=== PATIENT | male | born 1940 | race Two or more races ===

== ENCOUNTER 2020-01-12 08:53 | Outpatient (REF) | payer MEDICARE, SELFPAY ==
--- NOTE | 2020-01-12 09:02 | XR_ITS ---
EXAMINATION: XR CHEST CLINICAL INFORMATION: Cough COMPARISON: None TECHNIQUE: 2 views of the chest were obtained. FINDINGS: There is question of subpleural groundglass opacity periphery right mid zone on frontal view. There is no lobar or segmental airspace consolidation. The costophrenic sulci are clear. The heart is normal in size. The hilar and mediastinal contours are unremarkable. No acute bony abnormality. XR/XR chest 2V IMPRESSION: 1. Suspect subtle subpleural groundglass opacity periphery right mid zone which could be associated with early atypical or viral pneumonia. 2. Lungs otherwise clear. No lobar or segmental airspace consolidation or effusion.
[2020-01-12 11:24] LABS: MANUAL DIFF FLAG NO
[2020-01-12 11:33] LABS: Estimated Average Glucose 160 mg/dL; Hemoglobin A1c % 7.2 %
[2020-01-12 11:34] LABS: Basophils Percent Auto 0.2 % (0-2); Eosinophils Absolute Auto 0.1 X10*3/uL (0.0-0.4); Eosinophils Percent Auto 0.9 % (0-4); Hematocrit 35.8 % (42-52); Hemoglobin 11.5 g/dl (14.0-18.0); Imm Gran Abs Auto 0.01 X10*3/uL (0.00-0.03); Imm Gran Pct Auto 0.2 % (0.0-0.4); Lymphocytes Absolute Auto 1.4 X10*3/uL (1.2-4.9); Lymphocytes Percent Auto 26.2 % (20-40); Mean Corpuscular HGB Conc 32.1 g/dl (31.0-36.0); Mean Corpuscular Hemoglobin 29.9 pg (27.0-33.0); Mean Platelet Volume 10.4 fL (9.4-12.4); Monocytes Absolute Auto 0.4 X10*3/uL (0.1-1.2); Monocytes Percent Auto 7.7 % (2-11); Neutrophils Absolute Auto 3.5 X10*3/uL (2.0-8.3); Neutrophils Percent Auto 64.8 % (45-73); Platelet Count 243 X10*3/uL (160-400); Red Blood Count 3.85 X10*6/uL (4.60-5.80); Red Cell Distribution Width 13.6 % (11.0-16.0); White Blood Count 5.4 X10*3/uL (4.8-10.8)
[2020-01-12 11:43] LABS: Creatinine Urine 97.37 mg/dL; Microalbumin Urine < 5.0 mg/L
[2020-01-12 12:39] LABS: Alanine Aminotransferase 18 U/L (0-40); Alkaline Phosphatase 60 U/L (39-117); Anion Gap 15 (12-20); Aspartate Amino Transferase 17 U/L (5-37); Bilirubin Total 0.5 mg/dL (0.0-1.0); Blood Urea Nitrogen 20 mg/dL (9-16); Calcium 8.7 mg/dL (8.4-10.2); Carbon Dioxide 26 mmol/L (22-29); Chloride 103 mmol/L (96-108); Cholesterol 208 mg/dL; Estimated Glomerular Filt Rate 57; Glucose Fasting 137 mg/dL (60-99); HDL Cholesterol 39 mg/dL; Iron 92 mcg/dL (45-160); LDL Cholesterol Calculated 131 mg/dl; Percent Iron Saturation 32 % (15-50); Potassium 4.5 mmol/l (3.3-5.1); Sodium 139 mmol/L (135-145); Total Iron Binding Capacity 287 mcg/dL (228-428); Total Protein 6.9 g/dL (6.5-8.0); Triglycerides 194 mg/dL; Unsaturated Iron Binding 195 ug/dL
== END 2020-01-12 08:54 | disposition home or self-care (01) ==
LOC: HO.HMGCLDS 08:53
PROVIDERS: PCP Internal Medicine; Visit Provider Internal Medicine
DX: E11.9 Type 2 diabetes mellitus without complications (principal); J44.9 Chronic obstructive pulmonary disease, unspecified; I48.91 Unspecified atrial fibrillation; I10 Essential (primary) hypertension; E78.5 Hyperlipidemia, unspecified; R05 Cough
CPT/HCPCS: 36415; 71046; 80053; 80061; 82043; 83036; 83540; 84443; 85025

== ENCOUNTER 2020-02-16 14:55 | Outpatient (REF) | payer MEDICARE, SELFPAY ==
--- NOTE | 2020-02-16 15:10 | XR_ITS ---
EXAMINATION: XR CHEST CLINICAL INFORMATION: Cough. COMPARISON: None TECHNIQUE: 2 views of the chest were obtained. FINDINGS: No significant abnormality is noted involving the heart, lungs, mediastinum, bony thorax or soft tissues. XR/XR chest 2V IMPRESSION: Unremarkable chest exam.
== END 2020-02-16 14:56 | disposition home or self-care (01) ==
LOC: HO.HMGCX 14:55
PROVIDERS: PCP Internal Medicine; Visit Provider Internal Medicine
DX: R05 Cough (principal)
CPT/HCPCS: 71046

== ENCOUNTER → 2020-02-29 09:34 | Outpatient (BNVA) | payer MEDICARE, SELFPAY | PROVIDERS: PCP Internal Medicine; Visit Provider Internal Medicine Cardiovascular Disease | DX: I48.0 Paroxysmal atrial fibrillation (principal); I11.9 Hypertensive heart disease without heart failure; Z79.01 Long term (current) use of anticoagulants; Z79.899 Other long term (current) drug therapy | CPT/HCPCS: 93005; 99212 ==

== ENCOUNTER 2020-03-08 10:33 | Outpatient (REF) | payer MEDICARE, SELFPAY ==
--- NOTE | 2020-03-08 10:38 | XR_ITS ---
EXAMINATION: XR CHEST CLINICAL INFORMATION: Cough. COMPARISON: None TECHNIQUE: 2 views of the chest were obtained. FINDINGS: The lungs are hyperinflated but clear. The heart size and pulmonary vascularity is normal. No gross bony abnormality seen. XR/XR chest 2V IMPRESSION: Hyperinflated lungs without acute process.
== END 2020-03-08 10:34 | disposition home or self-care (01) ==
LOC: HO.HMGCX 10:33
PROVIDERS: PCP Internal Medicine; Visit Provider Internal Medicine
DX: R05 Cough (principal); J44.9 Chronic obstructive pulmonary disease, unspecified
CPT/HCPCS: 71046

== ENCOUNTER 2020-05-12 08:37 | Outpatient (REF) | payer MEDICARE, SELFPAY ==
[2020-05-12 11:29] LABS: MANUAL DIFF FLAG NO
[2020-05-12 11:38] LABS: Basophils Percent Auto 0.3 % (0-2); Eosinophils Absolute Auto 0.1 X10*3/uL (0.0-0.4); Eosinophils Percent Auto 1.1 % (0-4); Hematocrit 38.8 % (42-52); Hemoglobin 12.5 g/dl (14.0-18.0); Imm Gran Abs Auto 0.01 X10*3/uL (0.00-0.03); Imm Gran Pct Auto 0.2 % (0.0-0.4); Lymphocytes Absolute Auto 2.3 X10*3/uL (1.2-4.9); Lymphocytes Percent Auto 37.9 % (20-40); Mean Corpuscular HGB Conc 32.2 g/dl (31.0-36.0); Mean Corpuscular Hemoglobin 29.9 pg (27.0-33.0); Mean Corpuscular Volume 92.8 fL (80-98); Mean Platelet Volume 10.2 fL (9.4-12.4); Monocytes Absolute Auto 0.5 X10*3/uL (0.1-1.2); Monocytes Percent Auto 8.5 % (2-11); Neutrophils Absolute Auto 3.2 X10*3/uL (2.0-8.3); Platelet Count 257 X10*3/uL (160-400); Red Blood Count 4.18 X10*6/uL (4.60-5.80); Red Cell Distribution Width 12.8 % (11.0-16.0); White Blood Count 6.1 X10*3/uL (4.8-10.8)
[2020-05-12 12:08] LABS: Alanine Aminotransferase 19 U/L (0-40); Albumin Level 4.2 g/dL (3.5-5.0); Alkaline Phosphatase 58 U/L (39-117); Anion Gap 11 (12-20); Aspartate Amino Transferase 18 U/L (5-37); Bilirubin Total 0.5 mg/dL (0.0-1.0); Blood Urea Nitrogen 27 mg/dL (9-16); Calcium 8.9 mg/dL (8.4-10.2); Carbon Dioxide 29 mmol/L (22-29); Chloride 103 mmol/L (96-108); Cholesterol 215 mg/dL; Estimated Glomerular Filt Rate 56; Glucose Fasting 99 mg/dL (60-99); HDL Cholesterol 39 mg/dL; LDL Cholesterol Calculated 123 mg/dl; Potassium 4.2 mmol/L (3.3-5.1); Sodium 139 mmol/L (135-145); Total Protein 7.1 g/dL (6.5-8.0); Triglycerides 268 mg/dL
[2020-05-12 12:12] LABS: Estimated Average Glucose 148 mg/dL; Hemoglobin A1c % 6.8 %
[2020-05-12 12:27] LABS: Creatinine Urine 94.11 mg/dL; Microalbumin Urine < 5.0 mg/L
== END 2020-05-12 08:38 | disposition home or self-care (01) ==
LOC: HO.HMGCLDS 08:37
PROVIDERS: PCP Internal Medicine; Visit Provider Internal Medicine
DX: J44.9 Chronic obstructive pulmonary disease, unspecified (principal); I48.91 Unspecified atrial fibrillation; E11.9 Type 2 diabetes mellitus without complications
CPT/HCPCS: 36415; 80053; 80061; 82043; 83036; 85025

== ENCOUNTER → 2020-06-09 14:07 | Outpatient (REF) | payer MEDICARE, SELFPAY ==
--- NOTE | 2020-06-09 14:12 | CA_ITS ---
Transthoracic Echocardiogram Patient (Last, First, Middle): Isaak Stephenson, Gender: Male Date of : 1940 Age: 79 Procedure Date: 06/09/2020 Procedure Type: Transthoracic Echocardiogram Location: OP Height: 170.18 cm Weight: 94.35 kg BSA: 2.06 m2 Heart Rate: bpm BP: 132 / 70 mmHg Retail Account Specialist: REYNALDO Referring MD: Ruddy Solomon MD Symptoms: I51.89 - Other ill-defined heart diseases Study Quality: Good ECG Rhythm: Atrial Fibrillation Conclusions: - The left ventricular systolic function is normal. The visually estimated ejection fraction is between 55-60%. - The left atrium is mildly dilated. - No obvious valvular pathology seen on this study. Findings Left Ventricle Normal left ventricular cavity size. There is mildly increased left ventricular wall thickness. The left ventricular systolic function is normal. The visually estimated ejection fraction is between 55-60%. There is no evidence of regional wall motion abnormalities. Diastolic function is indeterminate on the basis of available data. Right Ventricle Normal right ventricular cavity size and systolic function. Atria The left atrium is mildly dilated. The right atrium is normal in size. Aortic Valve There is a normal trileaflet aortic valve. There is no aortic valve stenosis. There is no aortic valve regurgitation. Mitral Valve The mitral valve appears normal. There is trace mitral valve regurgitation. There is no mitral valve stenosis. Pulmonic Valve The pulmonic valve was not well visualized. Tricuspid Valve Normal tricuspid valve structure. There is trace tricuspid valve regurgitation. The pulmonary artery systolic pressure is normal. Great Vessels The aortic annulus, sinuses of valsalva, and asc aorta are normal in size. Venous The inferior vena cava is normal in size and collapses greater than 50% with inspiration. Pericardium/Pleural There is no evidence of pericardial effusion. Prior Study Comparison No significant change compared to prior study dated: 06/19/2018. Recommendations, Care & Conclusions No obvious valvular pathology seen on this study. Measurements 2D Linear Measurements IVSd: 1.22 0.6-0.9/0.6-1.0 cm LVIDd: 4.88 3.9-5.3/4.2-5.9 cm LVIDd Index: 2.37 2.4-3.2/2.2-3.1 cm/m2 LVIDs: 3.29 2.0-3.6 cm LVPWd: 1.19 0.7-1.1 cm Ao Root: 4.00 2.1-3.5 cm LA Diam: 4.00 2.7-3.8/3.0-4.0 cm LAIDs Index: 1.94 1.5-2.3 cm/m2 LV Mass: 282.05 67-162/88-224 g LV Mass Index: 136.92 43-95/49-115 g/m2 LVOT Diam: 2.20 3.0+(-)1.3 cm 2D Systolic Function EF 4C: 58.30 >55% EF 2C: 63.50 >55% EF BiP: 60.20 >55% Aortic Valve AoV Pk Jaime: 1.32 AoV Mn Jaime: 0.94 AoV VTI: 0.25 AoV Pk Grad: 7.00 Aov Mn Grad: 4.00 ANDREA Cont.VTI: 2.53 LVOT LVOT Pk Jaime: 0.76 LVOT Mn Jaime: 0.55 LVOT VTI: 0.16 LVOT Pk Grad: 2.00 LVOT Mn Grad: 1.00 LVOT Diam: 2.20 LVOT Area: 3.80 Tricuspid Valve TR Pk Jaime: 2.47 TR Pk Grad: 24.00 RA Press: 3.00 RVSP: 27.00 Great Vessels Aorta Ao Root-2D: 4.00 2.0-3.7 cm Ao Asc: 3.70 2.1-3.4 cm Ao Arch: 3.30 Updated in Other Vendor System with Status of Final Rolf Alfredo MD electronically signed on 06/11/2020 11:45:34 AM with status of Final
== END ==
LOC: HO.CARD 14:07
PROVIDERS: Visit Provider Internal Medicine Cardiovascular Disease
DX: I48.0 Paroxysmal atrial fibrillation (principal); I51.89 Other ill-defined heart diseases
CPT/HCPCS: 93306

== ENCOUNTER → 2020-06-14 11:49 | Outpatient (BNVA) | payer MEDICARE, SELFPAY | PROVIDERS: PCP Internal Medicine; Visit Provider Nurse Practitioner Family | DX: I48.0 Paroxysmal atrial fibrillation (principal); I11.9 Hypertensive heart disease without heart failure; Z79.899 Other long term (current) drug therapy | CPT/HCPCS: 93005; 99212 ==

== ENCOUNTER → 2020-06-16 09:37 | Outpatient (REF) | payer MEDICARE, SELFPAY ==
--- NOTE | 2020-06-16 13:20 | ECG_ITS ---
Hook-up date: 2020-06-16 10:01:00 Duration: 24:57:00 Test Indications: PAF Medications: [id number] QRS complexes 69 Ventricular ectopics which represent <1 % of total QRS comp. * Supraventricular ectopics which represent % of total QRS comp. * Paced QRS complexs which represent % of total QRS comp. VENTRICULAR ECTOPY 69 Isolated 0 Bigeminal Cycles 0 Couplets 0 Runs 0 Beats in Runs * Beats LONGEST at * BPM at :: -- * Beats FASTEST at * BPM at :: -- SUPRAVENTRICULAR ECTOPY * Isolated * Couplets * Runs * Beats in Runs * Beats LONGEST at * BPM at :: -- * Beats FASTEST at * BPM at :: -- HEART RATES 46 MIN at 01:37:14 2020-06-17 74 AVG 148 MAX at 10:04:45 2020-06-16 LONGEST RR 2.4080 secs at 01:51:44 2020-06-17 S-T LEVELS Channel 1 - 128 mm at 10:01:00 2020-06-16 - 128 mm at 10:01:00 2020-06-16 Channel 2 - 128 mm at 10:01:00 2020-06-16 - 128 mm at 10:01:00 2020-06-16 Channel 3 - 128 mm at 02:92:01 -- - 128 mm at 02:92:01 Underlying rhythm is atrial fibrillation; Average rate 74/min; range 46-148/min; Most rates are between 60-100/min; Very rare PVCs; Patient diary not available for review. Referred By: Rhina Pedro Overread By: YESSI SCHUSTER
== END ==
LOC: HO.CARD 09:37
PROVIDERS: PCP Internal Medicine; Visit Provider Nurse Practitioner Family
DX: I48.0 Paroxysmal atrial fibrillation (principal)
CPT/HCPCS: 93226

== ENCOUNTER 2020-06-21 08:50 | Day surgery (SDC) | payer MEDICARE, SELFPAY ==
--- NOTE | 2020-06-16 13:52 | HO.ANESPROP2 ---
Documented by User: Micheline Pedrozaney 06/16/20 13:54 HPI - Anesthesia Eval Consult details Narrative: 79yo M for Colonoscopy Routine cardiology OV 06/13/20 - stable Pradaxa for Afib PMFSH Active Problems Active Problems: All Active Problems (Updated 02/29/20 @ 10:42 by Ruddy Solomon MD) Paroxysmal atrial fibrillation (Acute) Diastolic dysfunction (Acute) HTN (hypertension) (Acute) Diabetes (Acute) COPD (chronic obstructive pulmonary disease) (Acute) Cough (Acute) Past Medical History Medical History BPH (benign prostatic hyperplasia) Chronic iron deficiency anemia COPD (chronic obstructive pulmonary disease) Cough Diabetes Diastolic dysfunction HTN (hypertension) Hyperlipidemia Paroxysmal atrial fibrillation Surgical History Surgical History H/O colonoscopy History of esophagogastroduodenoscopy (EGD) S/P cholecystectomy Social History Social History Alcohol intake: never Smoking Status: Never smoker Use of substances other than those prescribed or required for medical reasons: No Have you been hit, kicked, punched, or otherwise hurt by someone within the past year? If so, by whom?: No Advance Directives: No Advance Directives Information Provided: Yes Recently lost weight without trying: No Meds Allergies Allergy/AdvReac Type Severity Reaction Status Date / Time No Known Allergies Allergy Verified 06/21/20 09:19 [No Known Allergies*] Home Medications Medication Instructions Recorded Confirmed Last Taken Type mecobalamin (vitamin B12) 1,000 1,000 mcg SUBLINGUAL DAILY 01/12/20 06/14/20 Unknown History mcg disintegrating tablet,sublingual multivit-mins no.11-folic acid PO 01/12/20 06/14/20 Unknown History pen needle, diabetic 31 gauge x #1200 ea 01/12/20 06/14/20 Unknown History 07/17 flu vacc [id number](65yr up)PF 180 0.5 ml IM DIRECTED 02/16/20 06/14/20 Unknown History mcg/0.5 mL intramuscular syringe pen needle, diabetic 32 gauge x #50 ea 02/16/20 06/14/20 Unknown History umeclidinium 62.5 mcg-vilanterol 1 ea INHALATION DAILY 02/16/20 06/14/20 Unknown History 25 mcg/actuation powdr for inhalation Exam Exam Date and Time: June 16, 2020 1352 Pertinent Lab Results Pertinent Lab Results: Laboratory Tests 05/12/20 05/12/20 08:45 08:45 WBC 6.1 Hgb 12.5 L Hct 38.8 L Plt Count 257 Sodium 139 Potassium 4.2 Chloride 103 Carbon Dioxide 29 BUN 27 H Creatinine 1.25 Narrative Narrative: EKG 06/2020 Atrial fibrillation, rate 67 ECHO 2020 Conclusions: - The left ventricular systolic function is normal. The visually estimated ejection fraction is between 55-60%. - The left atrium is mildly dilated. - No obvious valvular pathology seen on this study. Assessment and Plan Assessment Anesthesia Assessment: Chart Reviewed Documented by User: Skylar Sarkar 06/21/20 09:21 PMFSH Past Medical History Medical History BPH (benign prostatic hyperplasia) Chronic iron deficiency anemia COPD (chronic obstructive pulmonary disease) Cough Diabetes Diastolic dysfunction HTN (hypertension) Hyperlipidemia Paroxysmal atrial fibrillation Surgical History Surgical History H/O colonoscopy History of esophagogastroduodenoscopy (EGD) S/P cholecystectomy Social History Social History Alcohol intake: never Smoking Status: Never smoker Use of substances other than those prescribed or required for medical reasons: No Have you been hit, kicked, punched, or otherwise hurt by someone within the past year? If so, by whom?: No Advance Directives: No Advance Directives Information Provided: Yes Recently lost weight without trying: No Meds Allergies Allergy/AdvReac Type Severity Reaction Status Date / Time No Known Allergies Allergy Verified 06/21/20 09:19 [No Known Allergies*] Home Medications Medication Instructions Recorded Confirmed Last Taken Type mecobalamin (vitamin B12) 1,000 1,000 mcg SUBLINGUAL DAILY 01/12/20 06/14/20 Unknown History mcg disintegrating tablet,sublingual multivit-mins no.11-folic acid PO 01/12/20 06/14/20 Unknown History pen needle, diabetic 31 gauge x #1200 ea 01/12/20 06/14/20 Unknown History 516 flu vacc [id number](65yr up)PF 180 0.5 ml IM DIRECTED 02/16/20 06/14/20 Unknown History mcg/0.5 mL intramuscular syringe pen needle, diabetic 32 gauge x #50 ea 02/16/20 06/14/20 Unknown History umeclidinium 62.5 mcg-vilanterol 1 ea INHALATION DAILY 02/16/20 06/14/20 Unknown History 25 mcg/actuation powdr for inhalation Exam Airway Mallampati Class: II TM Dist: >3cm Neck ROM: Full Assessment and Plan Assessment Anesthesia Assessment: Anesthesia Plan Discussed and Chart Reviewed Final Anesthetic Review NPO: Yes ASA Class: III Final Preanesthetic Review: No Changes in Pt Med Stat, Meds/Allgs Chart Reviewed, Consent Obtained/Reviewed and Anes Risks/Benef Reviewed Patient Risk: Intermediate Procedure Risk: Low Assessment/Block/Sedation in SS: Assess/Block/Sedation-SS Anesthetic Plan Anesthetic Plan: MAC: Disposition: Standard PACU
[2020-06-21 09:18] VITALS: BP 160/94; PULSE 81; RESP 18; TEMP 36.2; O2SAT 96
[2020-06-21 09:20] LABS: Glucose, Whole Blood 133 mg/dL (60-115)
--- NOTE | 2020-06-21 09:21 | P.CONAN_ITS ---
[facility] Active Problems Active Problems: All Active Problems (Updated 06/16/20 @ 13:54 by Micheline casiano) Paroxysmal atrial fibrillation (Acute) Diastolic dysfunction (Acute) HTN (hypertension) (Acute) Diabetes (Acute) COPD (chronic obstructive pulmonary disease) (Acute) Cough (Acute) Past Medical History Medical History BPH (benign prostatic hyperplasia) Chronic iron deficiency anemia COPD (chronic obstructive pulmonary disease) Cough Diabetes Diastolic dysfunction HTN (hypertension) Hyperlipidemia Paroxysmal atrial fibrillation Surgical History Surgical History H/O colonoscopy History of esophagogastroduodenoscopy (EGD) S/P cholecystectomy Social History Social History Alcohol intake: never Smoking Status: Never smoker Use of substances other than those prescribed or required for medical reasons: No Have you been hit, kicked, punched, or otherwise hurt by someone within the past year? If so, by whom?: No Advance Directives: No Advance Directives Information Provided: Yes Recently lost weight without trying: No Meds Allergies Allergy/AdvReac Type Severity Reaction Status Date / Time No Known Allergies Allergy Verified 06/21/20 09:19 [No Known Allergies*] Active Medications: Current Medications Generic Name Dose Route Start Last Admin Trade Name Freq PRN Reason Stop Dose Admin Albuterol Sulfate 2.5 mg 06/21/20 08:30 Albuterol Sulfate (0.083%) 2.5 Mg/3 Ml Vial.Neb INHALE ONCE PRN Shortness of Breath/Wheezing Lactated Ringer's 1,000 mls @ 100 mls/hr 06/21/20 08:30 Lr IVCONT .Q10H [facility] Home Medications Medication Instructions Recorded Confirmed Last Taken Type mecobalamin (vitamin B12) 1,000 1,000 mcg SUBLINGUAL DAILY 01/12/20 06/14/20 Unknown History mcg disintegrating tablet,sublingual multivit-mins no.11-folic acid PO 01/12/20 06/14/20 Unknown History pen needle, diabetic 31 gauge x #1200 ea 01/12/20 06/14/20 Unknown History 07/17 flu vacc [id number](65yr up)PF 180 0.5 ml IM DIRECTED 02/16/20 06/14/20 Unknown History mcg/0.5 mL intramuscular syringe pen needle, diabetic 32 gauge x #50 ea 02/16/20 06/14/20 Unknown History umeclidinium 62.5 mcg-vilanterol 1 ea INHALATION DAILY 02/16/20 06/14/20 Unknown History 25 mcg/actuation powdr for inhalation Exam Exam Date and Time: June 21, 2020920 Height,Weight and Vital Signs: Height 203 ft Weight 2.438 kg Last Vital Signs Temp 97.1 F 06/21/20 09:18 Pulse 81 06/21/20 09:18 Resp 18 06/21/20 09:18 BP 160/94 H 06/21/20 09:18 Pulse Ox 96 06/21/20 09:18 Pertinent Lab Results Pertinent Lab Results: Laboratory Tests 06/21/20 09:15 POC Glucose 133 H
[2020-06-21] MEDS: Lactated Ringers 1,000 ML 100 ML IVCONT (09:33)
--- NOTE | 2020-06-21 09:44 | MHC.SHP ---
Pre-Procedural Eval Section A The patient is an INPATIENT: No Changes since office visit: No Cold of Flu in the past 2 weeks, No New Medical Problems, No Changes in Medication and No Patient answered all questions The History & Physical has been completed within 30 days and I have reviewed it.: Yes Section B Chief Complaint: screening Allergies: Allergies Allergy/AdvReac Type Severity Reaction Status Date / Time No Known Allergies Allergy Verified 06/21/20 09:19 [No Known Allergies*] Plan I have reviewed the history and physical and performed a pertinent physical examination on my patient. No changes have occurred unless specified.
[2020-06-21 10:20] VITALS: BP 124/63; PULSE 94; RESP 16; TEMP 36.2; O2SAT 97
--- NOTE | 2020-06-21 10:22 | PM.OP ---
Brief Operative Note Date of Service: 06/21/20 Pre-op diagnosis: screening Post-op diagnosis: same Procedure: colonoscopy Surgeon: Mckinley Rashid Estimated blood loss (mL): 5 Pathology: other (polyps cecum, r colon, 60cm, 45cm) Condition: stable Disposition: PACU
[2020-06-21 10:35] VITALS: BP 137/98; PULSE 95; RESP 17; TEMP 36.2; O2SAT 96
--- NOTE | 2020-06-21 10:47 | OP_ITS ---
SURGEON: Mckinley Rashid MD INDICATIONS: Colon cancer screening. PREOPERATIVE DIAGNOSIS: POSTOPERATIVE DIAGNOSIS: PROCEDURE PERFORMED: ESTIMATED BLOOD LOSS: COMPLICATIONS: ANESTHESIA: Medications, monitored anesthesia care. ASSISTANTS: SPECIMENS: PROCEDURES PERFORMED: Colonoscopy to the cecum with biopsy and snare polypectomy. DESCRIPTION OF PROCEDURE: History and physical performed. The risks and benefits of the procedure were explained to the patient. Informed consent was obtained. The patient was placed in the left lateral decubitus position. A digital rectal exam was performed and was found to be normal. The Olympus pediatric video colonoscope was introduced into the rectum and advanced to the cecum without difficulty. The cecum was identified by transillumination, palpation, and identification of ileocecal valve. Examination was performed, and the scope was removed. He tolerated the procedure well and was returned to the recovery area in stable condition. FINDINGS: The terminal ileum was not examined. The visualized colonic mucosa was within normal limits without evidence of masses or ulcers. Multiple polyps were identified, all measured less than 10 mm, removed with combination of snare and biopsy forceps. These were located in the cecum, right colon, 60 cm x3 and 45 cm. No other polyps were identified. There was some stool left limiting examination for detection of small polyps. This was washed and suctioned. There was moderate diverticulosis of the sigmoid. Retroflexed examination showed small internal hemorrhoids. IMPRESSION: Colon polyps. RECOMMENDATION: Follow up the biopsy results. MD MICHAEL Steele/JAS / [id number] MTDD
== END 2020-06-21 10:54 | disposition home or self-care (01) ==
PROVIDERS: PCP Internal Medicine; Visit Provider Internal Medicine Gastroenterology
PROC: 0DJD8ZZ Inspection of Lower Intestinal Tract, Via Natural or Artificial Opening Endoscopic (ICD-10-PCS; CPT 45378; principal; 2020-06-21 10:00)
DX: Z12.11 Encounter for screening for malignant neoplasm of colon (principal); Z86.010 Personal history of colon polyps; D12.0 Benign neoplasm of cecum; D12.2 Benign neoplasm of ascending colon; D12.4 Benign neoplasm of descending colon; K63.5 Polyp of colon; K57.30 Diverticulosis of large intestine without perforation or abscess without bleeding; K64.8 Other hemorrhoids; I10 Essential (primary) hypertension; J44.9 Chronic obstructive pulmonary disease, unspecified; J45.20 Mild intermittent asthma, uncomplicated; G62.9 Polyneuropathy, unspecified; I48.0 Paroxysmal atrial fibrillation; E11.9 Type 2 diabetes mellitus without complications; Z79.4 Long term (current) use of insulin; Z79.01 Long term (current) use of anticoagulants; Z79.51 Long term (current) use of inhaled steroids; Z79.899 Other long term (current) drug therapy; Z90.49 Acquired absence of other specified parts of digestive tract
CPT/HCPCS: 45385; 45380; 82947; 88305

== ENCOUNTER 2021-01-17 08:17 | Outpatient (REF) | payer MEDICARE, SELFPAY ==
[2021-01-17 12:04] LABS: Microalbum/Creatinine Ratio Ur 4.6 ug/mg cr
[2021-01-17 12:08] LABS: Estimated Average Glucose 180 mg/dL; Hemoglobin A1c % 7.9 %
[2021-01-17 12:11] LABS: Alanine Aminotransferase 26 U/L (0-40); Alkaline Phosphatase 60 U/L (39-117); Anion Gap 11 (12-20); Aspartate Amino Transferase 18 U/L (5-37); Bilirubin Total 0.4 mg/dL (0.0-1.0); Blood Urea Nitrogen 24 mg/dL (9-16); Calcium 8.6 mg/dL (8.4-10.2); Carbon Dioxide 28 mmol/L (22-29); Chloride 103 mmol/L (96-108); Cholesterol 104 mg/dL; Estimated Glomerular Filt Rate 57; Glucose Fasting 122 mg/dL (60-99); HDL Cholesterol 39 mg/dL; LDL Cholesterol Calculated 48 mg/dl; Potassium 4.3 mmol/L (3.3-5.1); Sodium 138 mmol/L (135-145); Total Protein 6.5 g/dL (6.5-8.0); Triglycerides 89 mg/dL
[2021-01-17 12:35] LABS: Prostate Specific Antigen Scr 1.12 ng/mL (<0.05-4.0); TSH reflex Free T4 3.78 uIU/mL (0.32-4.0)
== END 2021-01-17 08:18 | disposition home or self-care (01) ==
LOC: HO.HMGCLDS 08:17
PROVIDERS: PCP Internal Medicine; Visit Provider Internal Medicine
DX: Z12.5 Encounter for screening for malignant neoplasm of prostate (principal); E11.9 Type 2 diabetes mellitus without complications; I10 Essential (primary) hypertension; J44.9 Chronic obstructive pulmonary disease, unspecified; I48.0 Paroxysmal atrial fibrillation
CPT/HCPCS: 36415; 80053; 80061; 82043; 83036; 84153; 84443

== ENCOUNTER → 2021-02-07 09:08 | Outpatient (BNVA) | payer MEDICARE, SELFPAY | PROVIDERS: PCP Internal Medicine; Referring Provider Internal Medicine; Visit Provider Internal Medicine Cardiovascular Disease | DX: I48.19 Other persistent atrial fibrillation (principal); I51.89 Other ill-defined heart diseases | CPT/HCPCS: 93005; 99212 ==

== ENCOUNTER 2021-03-31 08:11 | Outpatient (REF) | payer MEDICARE, SELFPAY ==
[2021-03-31 11:41] LABS: Estimated Average Glucose 154 mg/dL
[2021-03-31 11:48] LABS: Alanine Aminotransferase 22 U/L (0-40); Albumin Level 4.2 g/dL (3.5-5.0); Alkaline Phosphatase 58 U/L (39-117); Anion Gap 13 (12-20); Aspartate Amino Transferase 20 U/L (5-37); Bilirubin Total 0.4 mg/dL (0.0-1.0); Blood Urea Nitrogen 21 mg/dL (9-16); Calcium 9.1 mg/dL (8.4-10.2); Carbon Dioxide 26 mmol/L (22-29); Chloride 105 mmol/L (96-108); Cholesterol 112 mg/dL; Estimated Glomerular Filt Rate 56; Glucose Fasting 79 mg/dL (60-99); HDL Cholesterol 36 mg/dL; LDL Cholesterol Calculated 54 mg/dl; Potassium 4.1 mmol/L (3.3-5.1); Sodium 140 mmol/L (135-145); Total Protein 7.1 g/dL (6.5-8.0); Triglycerides 114 mg/dL
[2021-03-31 11:52] LABS: Prostate Specific Antigen Scr 1.07 ng/mL (<0.05-4.0); TSH reflex Free T4 4.29 uIU/mL (0.32-4.0)
[2021-03-31 11:55] LABS: Creatinine Urine 123.17 mg/dL; Microalbum/Creatinine Ratio Ur 4.8 ug/mg cr
[2021-03-31 12:27] LABS: Free T4 (Free Thyroxine) 0.93 ng/dL (0.71-1.85)
== END 2021-03-31 08:12 | disposition home or self-care (01) ==
LOC: HO.HMGCLDS 08:11
PROVIDERS: PCP Internal Medicine; Visit Provider Internal Medicine
DX: Z12.5 Encounter for screening for malignant neoplasm of prostate (principal); E11.9 Type 2 diabetes mellitus without complications; I10 Essential (primary) hypertension; I48.0 Paroxysmal atrial fibrillation; I51.89 Other ill-defined heart diseases; J44.9 Chronic obstructive pulmonary disease, unspecified
CPT/HCPCS: 36415; 80053; 80061; 82043; 83036; 84153; 84439; 84443

== ENCOUNTER → 2021-04-13 10:33 | Outpatient (REF) | payer MEDICARE, SELFPAY ==
--- NOTE | 2021-04-13 10:37 | CA_ITS ---
Transthoracic Echocardiogram Patient (Last, First, Middle): Isaak Stephenson, Gender: Male Date of : 1940 Age: 80 Procedure Date: 04/13/2021 Procedure Type: Transthoracic Echocardiogram Location: OP Height: 172.72 cm Weight: 95.26 kg BSA: 2.09 m2 Heart Rate: bpm BP: 118 / 76 mmHg Division Chair: TIMOTHY Referring MD: Ruddy Solomon MD Cloth Laminating Supervisor: Ruddy Solomon MD Symptoms: I48.19 - Other persistent atrial fibrillation Study Quality: Good ECG Rhythm: Atrial Fibrillation Conclusions: - 1. Normal LV systolic function 2. Mild biatrial enlargement 3. Normal cardiac valvular Doppler 4. Normal RV systolic pressure 5. No pericardial effusion Findings Left Ventricle Normal left ventricular size, thickness, and systolic function. The visually estimated ejection fraction is between 55-60%. E/E prime ratio is between 8 and 15 consistent with indeterminate filling pressures. Right Ventricle Mildly increased right ventricular cavity size. There is normal right ventricular systolic function. Atria Mild biatrial enlargement. There is no evidence of interatrial shunt. Aortic Valve Normal aortic valve structure and function. There is no aortic valve stenosis. There is no aortic valve regurgitation. Mitral Valve Normal mitral valve structure and function. There is trace mitral valve regurgitation. There is no mitral valve stenosis. Pulmonic Valve The pulmonic valve was not well visualized. Tricuspid Valve Likely normal tricuspid valve structure and function. There is mild tricuspid valve regurgitation. The right ventricular systolic pressure is normal. The right ventricular systolic pressure is 34 mmHg. Normal right atrial pressure. There is no evidence of pulmonary hypertension. Great Vessels All visible segments of the aorta are normal in size. The pulmonary artery was not well visualized. Venous The inferior vena cava is normal in size and collapses greater than 50% with inspiration. Pericardium/Pleural There is no evidence of pericardial effusion. Prior Study Comparison No significant change compared to prior study dated: 06/09/2020. Measurements 2D Linear Measurements IVSd: 1.22 0.6-0.9/0.6-1.0 cm LVIDd: 5.16 3.9-5.3/4.2-5.9 cm LVIDd Index: 2.47 2.4-3.2/2.2-3.1 cm/m2 LVIDs: 3.47 2.0-3.6 cm LVPWd: 0.94 0.7-1.1 cm Ao Root: 3.90 2.1-3.5 cm LA Diam: 4.30 2.7-3.8/3.0-4.0 cm LAIDs Index: 2.06 1.5-2.3 cm/m2 LV Mass: 265.20 67-162/88-224 g LV Mass Index: 126.89 43-95/49-115 g/m2 LVOT Diam: 2.20 3.0+(-)1.3 cm 2D Systolic Function EF 4C: 61.10 >55% EF 2C: 57.30 >55% EF BiP: 58.90 >55% Mitral Valve MV Pk E: 0.93 MV Decel Time: 176.00 E'Lateral: 10.00 E'Medial: 8.49 E/E' Med: 11.00 E/E' Lat: 9.30 PHT: 51.00 MVA PHT: 4.31 Decel Coffee: 5.32 Aortic Valve AoV Pk Jaime: 1.03 AoV Mn Jaime: 0.77 AoV VTI: 0.22 AoV Pk Grad: 4.00 Aov Mn Grad: 3.00 ANDREA Cont.VTI: 2.65 LVOT LVOT Pk Jaime: 0.69 LVOT Mn Jaime: 0.49 LVOT VTI: 0.15 LVOT Pk Grad: 2.00 LVOT Mn Grad: 1.00 LVOT Diam: 2.20 LVOT Area: 3.80 Diastolic Function MV Pk E: 0.93 E'Medial: 8.49 E/E' Med: 11.00 E' Laterial: 10.00 E/E' Lat: 9.30 Right Ventricle TAPSE (mm): 18.00 TVS' Jaime: 10.20 Tricuspid Valve TR Pk Jaime: 2.78 TR Pk Grad: 31.00 RA Press: 3.00 RVSP: 34.00 Great Vessels Aorta Ao Root-2D: 3.90 2.0-3.7 cm Ao Asc: 3.30 2.1-3.4 cm Ao Arch: 3.20 Updated in Other Vendor System with Status of Final Ruddy Solomon MD electronically signed on 04/13/2021 1:49:06 PM with status of Final
== END ==
LOC: HO.CARD 10:33
PROVIDERS: PCP Internal Medicine; Visit Provider Internal Medicine Cardiovascular Disease
DX: I48.91 Unspecified atrial fibrillation (principal); I11.9 Hypertensive heart disease without heart failure
CPT/HCPCS: 93306

== ENCOUNTER → 2021-04-26 09:50 | Outpatient (BNVA) | payer MEDICARE, SELFPAY | PROVIDERS: PCP Internal Medicine; Referring Provider Internal Medicine; Visit Provider Internal Medicine Cardiovascular Disease | DX: I48.19 Other persistent atrial fibrillation (principal); I10 Essential (primary) hypertension | CPT/HCPCS: 99212 ==

== ENCOUNTER 2021-05-31 08:40 | Outpatient (REF) | payer MEDICARE, SELFPAY ==
[2021-05-31 11:58] LABS: Hematocrit 35.9 % (42.0-52.0); Hemoglobin 11.6 g/dl (14.0-18.0); Mean Corpuscular HGB Conc 32.3 g/dl (31.0-36.0); Mean Corpuscular Volume 92.8 fL (80.0-98.0); Mean Platelet Volume 10.9 fL (9.4-12.4); Platelet Count 184 X10*3/uL (160-400); Red Blood Count 3.87 X10*6/uL (4.60-5.80); Red Cell Distribution Width 13.5 % (11.0-16.0); White Blood Count 5.4 X10*3/uL (4.8-10.8)
[2021-05-31 12:14] LABS: Creatinine Urine 388.06 mg/dL; Microalbum/Creatinine Ratio Ur 9.7 ug/mg cr
[2021-05-31 12:59] LABS: Estimated Average Glucose 148 mg/dL; Hemoglobin A1c % 6.8 %
[2021-05-31 13:34] LABS: Alanine Aminotransferase 22 U/L (0-40); Alkaline Phosphatase 57 U/L (39-117); Anion Gap 13 (12-20); Aspartate Amino Transferase 20 U/L (5-37); Bilirubin Total 0.5 mg/dL (0.0-1.0); Blood Urea Nitrogen 21 mg/dL (9-16); Calcium 8.9 mg/dL (8.4-10.2); Carbon Dioxide 26 mmol/L (22-29); Chloride 107 mmol/L (96-108); Cholesterol 108 mg/dL; Estimated Glomerular Filt Rate 54; Glucose Fasting 82 mg/dL (60-99); HDL Cholesterol 44 mg/dL; LDL Cholesterol Calculated 54 mg/dl; Potassium 4.7 mmol/L (3.3-5.1); Sodium 141 mmol/L (135-145); Total Protein 6.9 g/dL (6.5-8.0); Triglycerides 51 mg/dL
== END 2021-05-31 08:41 | disposition home or self-care (01) ==
LOC: HO.HMGCLDS 08:40
PROVIDERS: PCP Internal Medicine; Visit Provider Internal Medicine
DX: I10 Essential (primary) hypertension (principal); E11.9 Type 2 diabetes mellitus without complications; I48.19 Other persistent atrial fibrillation
CPT/HCPCS: 36415; 80053; 80061; 82043; 83036; 84443; 85027

== ENCOUNTER 2022-02-14 07:54 | Outpatient (REF) | payer MEDICARE, SELFPAY ==
[2022-02-14 12:27] LABS: Creatinine Urine 102.17 mg/dL; Microalbum/Creatinine Ratio Ur 5.8 ug/mg cr
[2022-02-14 14:22] LABS: MANUAL DIFF FLAG NO
[2022-02-14 14:33] LABS: Basophils Percent Auto 0.4 % (0-2); Eosinophils Absolute Auto 0.1 X10*3/uL (0.0-0.4); Eosinophils Percent Auto 1.9 % (0-4); Hematocrit 37.7 % (42.0-52.0); Hemoglobin 12.2 g/dl (14.0-18.0); Imm Gran Abs Auto 0.01 X10*3/uL (0.00-0.03); Imm Gran Pct Auto 0.2 % (0.0-0.4); Lymphocytes Absolute Auto 1.7 X10*3/uL (1.2-4.9); Lymphocytes Percent Auto 37.1 % (20-40); Mean Corpuscular HGB Conc 32.4 g/dl (31.0-36.0); Mean Corpuscular Volume 92.9 fL (80.0-98.0); Mean Platelet Volume 10.4 fL (9.4-12.4); Monocytes Absolute Auto 0.5 X10*3/uL (0.1-1.2); Monocytes Percent Auto 9.7 % (2-11); Neutrophils Absolute Auto 2.4 x10*3/uL (2.0-8.3); Neutrophils Percent Auto 50.7 % (45-73); Platelet Count 208 X10*3/uL (160-400); Red Blood Count 4.06 X10*6/uL (4.60-5.80); Red Cell Distribution Width 13.1 % (11.0-16.0); White Blood Count 4.7 X10*3/uL (4.8-10.8)
[2022-02-14 14:41] LABS: Estimated Average Glucose 171 mg/dL; Hemoglobin A1c % 7.6 %
[2022-02-14 15:18] LABS: Vitamin B12 1539 pg/mL (200-900)
[2022-02-14 15:39] LABS: Alanine Aminotransferase 22 U/L (0-40); Alkaline Phosphatase 64 U/L (39-117); Anion Gap 14 (12-20); Aspartate Amino Transferase 21 U/L (5-37); Bilirubin Total 0.7 mg/dL (0.0-1.0); Blood Urea Nitrogen 18 mg/dL (9-16); Calcium 8.7 mg/dL (8.4-10.2); Carbon Dioxide 25 mmol/L (22-29); Chloride 106 mmol/L (96-108); Cholesterol 105 mg/dL; Estimated Glomerular Filt Rate 55; Glucose Fasting 97 mg/dL (60-99); HDL Cholesterol 36 mg/dL; LDL Cholesterol Calculated 46 mg/dl; Potassium 4.5 mmol/L (3.3-5.1); Sodium 140 mmol/L (135-145); Total Protein 6.6 g/dL (6.5-8.0); Triglycerides 118 mg/dL
[2022-02-14 16:24] LABS: Free T4 (Free Thyroxine) 1.04 ng/dL (0.71-1.85)
== END 2022-02-14 07:55 | disposition home or self-care (01) ==
LOC: HO.HMGCLDS 07:54
PROVIDERS: PCP Internal Medicine; Visit Provider Internal Medicine
DX: E11.9 Type 2 diabetes mellitus without complications (principal); I10 Essential (primary) hypertension; I48.19 Other persistent atrial fibrillation; J44.9 Chronic obstructive pulmonary disease, unspecified; D50.9 Iron deficiency anemia, unspecified
CPT/HCPCS: 36415; 80053; 80061; 82043; 82607; 82746; 83036; 84439; 84443; 85025

== ENCOUNTER → 2022-04-12 09:59 | Outpatient (REF) | payer MEDICARE, SELFPAY ==
--- NOTE | 2022-04-12 10:05 | CA_ITS ---
Transthoracic Echocardiogram Patient (Last, First, Middle): Isaak Stephenson, Gender: Male Date of : 1940 Age: 81 Procedure Date: 04/12/2022 Procedure Type: Transthoracic Echocardiogram Location: OP Height: 170.18 cm Weight: 92.99 kg BSA: 2.04 m2 Heart Rate: bpm BP: 142 / 72 mmHg Emotional Support Teacher: TO Referring MD: Ruddy Solomon MD Industrial Maintenance Electrician: Ruddy Solomon MD Symptoms: I48.19 - Other persistent atrial fibrillation Study Quality: Adequate ECG Rhythm: Atrial flutter Conclusions: - 1. Mildly reduced LV ejection fraction 45-50% 2. Mild biatrial enlargement 3. Trace aortic and mitral regurgitation 4. Normal RV systolic pressure 5. Upper limits of normal ascending aortic size at 3.7 cm 6. No pericardial effusion Findings Left Ventricle Normal left ventricular cavity size. There is normal left ventricular wall thickness. The left ventricular systolic function is mildly decreased. The visually estimated ejection fraction is between 45-50%. Diastolic function is indeterminate on the basis of available data. Peak GLS is - 9.8%, which is very reduced. Right Ventricle Normal right ventricular cavity size and systolic function. Atria Mild biatrial enlargement. There is no evidence of interatrial shunt. Aortic Valve There is mild thickening of the aortic valve. There is no aortic valve stenosis. There is trace (trivial) aortic valve regurgitation. Mitral Valve There is mild anterior and posterior mitral leaflet thickening. There is trace mitral valve regurgitation. There is no mitral valve stenosis. Pulmonic Valve The pulmonic valve is likely normal. There is trace pulmonic valve regurgitation. Tricuspid Valve Normal tricuspid valve structure. There is mild tricuspid valve regurgitation. The right ventricular systolic pressure is normal. The right ventricular systolic pressure is 23 mmHg. Normal right atrial pressure. There is no evidence of pulmonary hypertension. Great Vessels All visible segments of the aorta are normal in size. The pulmonary artery was not well visualized. Venous The inferior vena cava is normal in size and collapses greater than 50% with inspiration. Pericardium/Pleural There is no evidence of pericardial effusion. Prior Study Comparison Changes noted compared to prior study dated: 04/13/2021. LV systolic function is mildly reduced Measurements 2D Linear Measurements IVSd: 1.18 0.6-0.9/0.6-1.0 cm LVIDd: 5.18 3.9-5.3/4.2-5.9 cm LVIDd Index: 2.54 2.4-3.2/2.2-3.1 cm/m2 LVIDs: 3.85 2.0-3.6 cm LVPWd: 1.00 0.7-1.1 cm LA Diam: 4.80 2.7-3.8/3.0-4.0 cm LAIDs Index: 2.35 1.5-2.3 cm/m2 LV Mass: 270.08 67-162/88-224 g LV Mass Index: 132.39 43-95/49-115 g/m2 LVOT Diam: 2.20 3.0+(-)1.3 cm 2D Systolic Function EF 4C: 41.70 >55% EF 2C: 45.90 >55% Mitral Valve MV Pk E: 0.73 MV Decel Time: 180.00 E'Lateral: 8.70 E'Medial: 7.07 E/E' Med: 10.40 E/E' Lat: 8.40 PHT: 53.00 MVA PHT: 4.15 Decel Stephenson: 4.08 Aortic Valve AoV Pk Jaime: 0.90 AoV Pk Grad: 3.00 LVOT LVOT Pk Jaime: 0.60 LVOT Mn Jaime: 0.42 LVOT VTI: 0.12 LVOT Pk Grad: 1.00 LVOT Mn Grad: 1.00 LVOT Diam: 2.20 LVOT Area: 3.80 Diastolic Function MV Pk E: 0.73 E'Medial: 7.07 E/E' Med: 10.40 E' Laterial: 8.70 E/E' Lat: 8.40 Right Ventricle TAPSE (mm): 18.10 TVS' Jaime: 9.42 Tricuspid Valve TR Pk Jaime: 2.22 TR Pk Grad: 20.00 RA Press: 3.00 RVSP: 23.00 Great Vessels Aorta Sinus of Valsalva: 4.20 2.0-3.[address] [place]: 3.13 1.7-3.4 cm Ao Asc: 3.70 2.1-3.4 cm Updated in Other Vendor System with Status of Final Ruddy Solomon MD electronically signed on 04/14/2022 1:34:18 PM with status of Final
== END ==
LOC: HO.CARD 09:59
PROVIDERS: PCP Internal Medicine; Visit Provider Internal Medicine Cardiovascular Disease
DX: I48.19 Other persistent atrial fibrillation (principal)
CPT/HCPCS: 93306; 93356

== ENCOUNTER → 2022-04-26 09:57 | Outpatient (BNVA) | payer MEDICARE, SELFPAY | PROVIDERS: PCP Internal Medicine; Referring Provider Internal Medicine; Visit Provider Internal Medicine Cardiovascular Disease | DX: I42.9 Cardiomyopathy, unspecified (principal); I48.19 Other persistent atrial fibrillation; Z79.01 Long term (current) use of anticoagulants | CPT/HCPCS: 93005; 99212 ==

== ENCOUNTER 2022-05-08 07:53 | Outpatient (REF) | payer MEDICARE, SELFPAY ==
[2022-05-08 11:39] LABS: MANUAL DIFF FLAG NO
[2022-05-08 11:51] LABS: Basophils Percent Auto 0.6 % (0-2); Eosinophils Absolute Auto 0.1 X10*3/uL (0.0-0.4); Eosinophils Percent Auto 1.7 % (0-4); Hematocrit 35.4 % (42.0-52.0); Hemoglobin 11.5 g/dl (14.0-18.0); Imm Gran Abs Auto 0.02 X10*3/uL (0.00-0.03); Imm Gran Pct Auto 0.4 % (0.0-0.4); Lymphocytes Absolute Auto 1.5 X10*3/uL (1.2-4.9); Lymphocytes Percent Auto 32.3 % (20-40); Mean Corpuscular HGB Conc 32.5 g/dl (31.0-36.0); Mean Corpuscular Hemoglobin 30.1 pg (27.0-33.0); Mean Corpuscular Volume 92.7 fL (80.0-98.0); Mean Platelet Volume 10.6 fL (9.4-12.4); Monocytes Absolute Auto 0.5 X10*3/uL (0.1-1.2); Monocytes Percent Auto 9.7 % (2-11); Neutrophils Absolute Auto 2.6 x10*3/uL (2.0-8.3); Neutrophils Percent Auto 55.3 % (45-73); Platelet Count 193 X10*3/uL (160-400); Red Blood Count 3.82 X10*6/uL (4.60-5.80); Red Cell Distribution Width 13.4 % (11.0-16.0); White Blood Count 4.7 X10*3/uL (4.8-10.8)
[2022-05-08 12:10] LABS: Estimated Average Glucose 163 mg/dL; Hemoglobin A1c % 7.3 %
[2022-05-08 13:01] LABS: Alanine Aminotransferase 23 U/L (0-40); Alkaline Phosphatase 63 U/L (39-117); Anion Gap 12 (12-20); Aspartate Amino Transferase 24 U/L (5-37); Bilirubin Total 0.7 mg/dL (0.0-1.0); Blood Urea Nitrogen 19 mg/dL (9-16); Calcium 8.3 mg/dL (8.4-10.2); Carbon Dioxide 26 mmol/L (22-29); Chloride 106 mmol/L (96-108); Cholesterol 113 mg/dL; Estimated Glomerular Filt Rate 48; Glucose Fasting 143 mg/dL (60-99); Glucose Random 142 mg/dL (60-115); HDL Cholesterol 40 mg/dL; Iron 80 mcg/dL (45-160); LDL Cholesterol Calculated 55 mg/dl; Percent Iron Saturation 29 % (15-50); Potassium 4.5 mmol/L (3.3-5.1); Sodium 139 mmol/L (135-145); Total Iron Binding Capacity 278 mcg/dL (228-428); Total Protein 6.7 g/dL (6.5-8.0); Triglycerides 90 mg/dL; Unsaturated Iron Binding 198 ug/dL
[2022-05-08 13:03] LABS: TSH reflex Free T4 3.05 uIU/mL (0.32-4.0)
[2022-05-08 13:34] LABS: Creatinine Urine 218.73 mg/dL
== END 2022-05-08 07:54 | disposition home or self-care (01) ==
LOC: HO.HMGCLDS 07:53
PROVIDERS: Absent Provider Internal Medicine Cardiovascular Disease; PCP Internal Medicine; Visit Provider Internal Medicine
DX: D50.9 Iron deficiency anemia, unspecified (principal); E11.9 Type 2 diabetes mellitus without complications; I10 Essential (primary) hypertension; I48.19 Other persistent atrial fibrillation; J44.9 Chronic obstructive pulmonary disease, unspecified; R79.89 Other specified abnormal findings of blood chemistry
CPT/HCPCS: 36415; 80048; 80053; 80061; 82043; 83036; 83540; 84443; 85025; 85027

== ENCOUNTER → 2022-05-11 07:55 | Outpatient (REF) | payer MEDICARE, SELFPAY ==
--- NOTE | ~2022-05-11 | NM_ITS ---
Myocardial perfusion study Indication: Cardiomyopathy to evaluate for myocardial ischemia Technique: The patient was brought in for a Lexiscan perfusion study on 05/11/2022. Patient performed low-level exercise and was injected 0.4 mg of Lexiscan intravenously. Within a minute of injection, 35 mCi of sestamibi was given intravenously. Images were obtained using the SPECT gamma camera interlaced with the gating device. Images were obtained in supine position. Resting perfusion study was performed on 05/14/2022. Patient was administered 35 mCi of sestamibi intravenously at rest. Images were then obtained in supine position. Images obtained with and without CT attenuation. Total DLP 98 mGy-cm. Images were processed with the software and compared side to side in short axis, horizontal long axis and vertical long axis views. Findings: The stress perfusion study showed non attenuated images show mildly to moderately reduced uptake in the inferior wall of the LV myocardium. Rest of the myocardium is normally perfused. Attenuation corrected images show mildly reduced uptake in the basal inferior wall of the LV myocardium.. The gated study shows normal LV systolic function with calculated LVEF of 55%. LV cavity is mildly dilated size. The gated study shows normal systolic wall thickening and contraction of segments. Resting study shows not show improved uptake in the basal inferior wall of the remainder of the inferior wall of the LV myocardium. Attenuation corrected images show improved uptake in the basal inferior wall of the LV myocardium. Gating at rest reveals normal systolic wall motion with ejection fraction at 50%. The findings are consistent with mild basal inferior wall ischemia. NM/NM emile perf SPECT rest & str Impression: 1. Myocardial perfusion imaging study shows mild intensity basal inferior ischemia 2. Gated LVEF is 51% 3. Transient ischemic dilatation not present EKG is nondiagnostic for ischemia
--- NOTE | 2022-05-11 08:00 | HM_ITS ---
Conclusion: 1. Patient was monitored for total period of 2 days and 21 hours 2. Baseline was atrial fibrillation with average heart rate of 75 beats per minute with overall good rate control 3. No significant pauses greater than 5 seconds noted 4. Patient reported to events which correlated with atrial fibrillation with controlled ventricular rate MTDD
--- NOTE | 2022-05-11 08:00 | CA_ITS ---
Acquisition Time: 2022-05-11 08:19:13 Total Exercise Time: 00:02:00 Test Indications: CARDIOMYOPATHY Medications: SEE H Protocol: LEXISCAN Max HR: 109 BPM 77% of Pred: 141 BPM Max BP: 142/064 mmHG Max Work Load: 1.0 METS Pharmacological stress test wth Lexiscan injection, while sitting and kicking his legs, with mild sob, no chest discomfort, without arrythmia other than baseline Afib, with normotensive response to injection, with nondiagnostic EKG for ischemia. In recovery he was treated with Aminophylline 75mg IVP to reverse Lexiscan. Nuclear images pending. Test reviewed with Dr Alfredo Referred By: Ruddy Solomon Overread By: YU ROONEY
== END ==
LOC: HO.CARD 07:55
PROVIDERS: PCP Internal Medicine; Visit Provider Internal Medicine Cardiovascular Disease
DX: I48.19 Other persistent atrial fibrillation (principal); I42.9 Cardiomyopathy, unspecified
CPT/HCPCS: 78452; 93017; 93242; A9500; J0280; J2785

== ENCOUNTER 2023-03-14 08:01 | Outpatient (REF) | payer MEDICARE, SELFPAY ==
[2023-03-14 11:34] LABS: MANUAL DIFF FLAG NO
[2023-03-14 11:53] LABS: Basophils Percent Auto 0.5 % (0-2); Eosinophils Absolute Auto 0.1 X10*3/uL (0.0-0.4); Eosinophils Percent Auto 1.1 % (0-4); Hematocrit 36.8 % (42.0-52.0); Hemoglobin 12.1 g/dl (14.0-18.0); Imm Gran Abs Auto 0.01 X10*3/uL (0.00-0.03); Imm Gran Pct Auto 0.2 % (0.0-0.4); Lymphocytes Absolute Auto 1.6 X10*3/uL (1.2-4.9); Lymphocytes Percent Auto 26.2 % (20-40); Mean Corpuscular HGB Conc 32.9 g/dl (31.0-36.0); Mean Corpuscular Hemoglobin 30.3 pg (27.0-33.0); Mean Corpuscular Volume 92.2 fL (80.0-98.0); Monocytes Absolute Auto 0.7 X10*3/uL (0.1-1.2); Monocytes Percent Auto 11.2 % (2-11); Neutrophils Absolute Auto 3.7 x10*3/uL (2.0-8.3); Neutrophils Percent Auto 60.8 % (45-73); Platelet Count 200 X10*3/uL (160-400); Red Blood Count 3.99 X10*6/uL (4.60-5.80); Red Cell Distribution Width 14.2 % (11.0-16.0); White Blood Count 6.2 X10*3/uL (4.8-10.8)
[2023-03-14 12:06] LABS: Estimated Average Glucose 174 mg/dL; Hemoglobin A1c % 7.7 % (<6.0)
[2023-03-14 12:21] LABS: Alanine Aminotransferase 24 U/L (0-40); Albumin Level 4.2 g/dL (3.5-5.0); Alkaline Phosphatase 62 U/L (39-117); Anion Gap 13 (12-20); Aspartate Amino Transferase 24 U/L (5-37); Bilirubin Total 0.4 mg/dL (0.0-1.0); Blood Urea Nitrogen 30 mg/dL (9-16); Calcium 9.1 mg/dL (8.4-10.2); Carbon Dioxide 28 mmol/L (22-29); Chloride 105 mmol/L (96-108); Cholesterol 118 mg/dL (<200); Estimated Glomerular Filt Rate 46; Glucose Fasting 98 mg/dL (60-99); HDL Cholesterol 42 mg/dL (>40); LDL Cholesterol Calculated 53 mg/dL (<100); Potassium 3.9 mmol/L (3.3-5.1); Sodium 142 mmol/L (135-145); TSH reflex Free T4 3.86 uIU/mL (0.32-4.0); Total Protein 7.4 g/dL (6.5-8.0); Triglycerides 117 mg/dL (<150)
[2023-03-14 12:53] LABS: Creatinine Urine 127.07 mg/dL; Microalbum/Creatinine Ratio Ur 7.8 ug/mg cr (<30)
== END 2023-03-14 08:02 | disposition home or self-care (01) ==
LOC: HO.HMGCLDS 08:01
PROVIDERS: PCP Internal Medicine; Visit Provider Internal Medicine
DX: E78.5 Hyperlipidemia, unspecified (principal); I10 Essential (primary) hypertension; E11.9 Type 2 diabetes mellitus without complications; J44.9 Chronic obstructive pulmonary disease, unspecified; I48.19 Other persistent atrial fibrillation; Z12.5 Encounter for screening for malignant neoplasm of prostate
CPT/HCPCS: 36415; 80053; 80061; 82043; 82570; 83036; 84153; 84443; 85025

== ENCOUNTER 2023-03-20 11:26 | Outpatient (AMB) | payer MEDICARE, SELFPAY ==
[2023-03-20 11:40] VITALS: BP 130/62; PULSE 75; O2SAT 95; BMI 32.6
--- NOTE | 2023-03-20 11:40 | A.OFFPC_ITS ---
Vital Signs 03/20/23 11:40 Height 5 ft 7 in Weight 208 lb BMI 32.6 BP 130/62 Blood Pressure Location Rt brachial Position Sitting Pulse 75 Pulse Source Pulse Oximeter Pulse Oximetry (%) 95 Oxygen Delivery Method Room Air Intake Visit Reasons: Follow up complex Intake Note: Pt is here today for a follow up visit. Allergies No Known Allergies [No Known Allergies*] Allergy (Verified 03/20/23 11:44) Medication List - Last Reconciled 03/20/23 by Jayleen Molina MD albuterol sulfate 90 mcg/actuation 2 puffs inhalation Q6H PRN blood sugar diagnostic 1 strip miscellaneous BID 90 days blood sugar diagnostic ([employer] Ultra Test strips) Test blood sugar 3 times per day blood-glucose meter,continuous ([employer] 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 G6 Sensor device) As directed blood-glucose transmitter (Dexcom G6 Transmitter device) As directed coenzyme Q10 60 mg PO DAILY dabigatran etexilate (Pradaxa) 150 mg PO BID diltiazem HCl 180 mg PO DAILY dulaglutide (Trulicity) 1.5 mg (0.5 mL) subcut QWEEK flash glucose scanning reader (Pulse[employer]Style Jesu 2 [place]) As directed flash glucose sensor (FreeStyle Jesu 2 Sensor kit) As directed flu vacc [id number](65yr up)PF 0.5 mL IM DIRECTED nttpcctvfmo-royizajkg-txzulslu 100-62.5-25 mcg (Trelegy Ellipta) 1 inh inhalation DAILY furosemide 20 mg PO DAILY Humalog KwikPen Insulin (insulin lispro) 10 units (0.1 mL) subcut TID NS insulin detemir U-100 30 units (0.3 mL) subcut DAILY ketoconazole 2% 1 appl topical BID levothyroxine 50 mcg PO DAILY mecobalamin (vitamin B12) 1,000 mcg sublingual DAILY metformin 1,000 mg PO BID metoprolol succinate ER 100 mg PO BID multivit-mins no.11-folic acid PO pen needle, diabetic (BD Ultra-Fine Short Pen Needle) 1 ea subcut TID 30 days rosuvastatin (Crestor) 20 mg PO DAILY sildenafil (Viagra) 25 mg PO DAILY PRN tamsulosin 0.8 mg (2 x 0.4 mg) PO BEDTIME valsartan 40 mg PO DAILY Tobacco use date assessed: 03/20/23 Fall risk assessment: 1 Fall in past year Last assessed Fall Risk: 03/20/23 Dental Screening Dental Screen Date: 03/20/23 Did you have a dental visit in the last 12 months?: Yes Did you have a dental problem in the last 6 months where you did not have access to dental care?: No Was dental information given to patient?: Patient has dentist HPI Follow up complex HPI Details Pt presents for f/u DM2, paroxysmal Afib, HTN. Pt spent 7 months in [place]. Patient fell down the stairs in August and developed pneumothorax and fractured ribs. He was hospitalized for for 1 week and recovered well. Patient is going back to [place] in the end of next month. [facility] Medical History Cataract Persistent atrial fibrillation Lower back pain Left shoulder pain Paroxysmal atrial fibrillation HTN (hypertension) Diastolic dysfunction Cough Chronic iron deficiency anemia BPH (benign prostatic hyperplasia) Hyperlipidemia COPD (chronic obstructive pulmonary disease) Diabetes Surgical History History of esophagogastroduodenoscopy (EGD) H/O colonoscopy S/P cholecystectomy Family History Father No problems noted. Mother No problems noted. Social History Housing: House Alcohol intake: never Patient Tobacco Use Status: Former Tobacco user (30 years ago) e-Cigarette/Vaping Use: Never Used Current occupational status: retired Cognitive needs: No Hearing needs: No Vision needs: No Questionnaire PHQ-9 Over the last 2 weeks, how often have you been bothered by any of the following problems? 1. Little interest or pleasure in doing things: not at all 2. Feeling down, depressed, or hopeless: not at all 3. Trouble falling or staying asleep, or sleeping too much: not at all 4. Feeling tired or having little energy: not at all 5. Poor appetite or overeating: not at all 6. Feeling bad about yourself - or that you are a failure or have let yourself or your family down: not at all 7. Trouble concentrating on things, such as reading the newspaper or watching television: not at all 8. Moving or speaking so slowly that other people could have noticed. Or the opposite - being so fidgety or restless that you have been moving around a lot more than usual: not at all 9. Thoughts that you would be better off or of hurting yourself in some way: not at all Total score: 0 Depression Screening Interpretation: Negative Depression Screening Done: Yes Source: Developed by Drs. Chester Edgar, Denisse Walden, Gautam Grayson and colleagues, with an educational raf from [employer] Thrive Questionnaire Date Thrive assessed: 03/20/23 I am a: Patient What is your living situation today?: I have a steady place to live Within the past 12 months, did the food you bought not last and you didn't have the money to get more?: Never true Within the past 12 months, did you worry whether your food would run out before you got money to buy more?: Never true Do you have trouble paying for medicines?: No Do you have trouble getting transportation to medical appointments?: No Do you have trouble paying your heating and electricity bill?: No Do you have trouble taking care of your child, family member or friend?: No Do you have trouble with day-to-day activities such as bathing, preparing meals, shopping, managing finances, etc.?: No Are you currently unemployed and looking for a job?: No Are you interested in more education?: No Please select the resources that you would like help with: None AUDIT C Alcohol Use Questionnaire (AUDIT-C) 1. How often do you have a drink containing alcohol?: Never 3. How often do you have six or more drinks on one occasion?: Never Total Score: 0 KELSEY-7 AMB Questionnaire KELSEY-7 Date KELSEY - 7 assessed: 03/20/23 Feeling nervous, anxious, or on edge: 0 = Not at all Not being able to stop or control worryin = Not at all Worrying too much about different things: 0 = Not at all Trouble relaxin = Not at all Being so restless that it is hard to sit still: 0 = Not at all Becoming easily annoyed or irritable: 0 = Not at all Feeling afraid as if something awful might happen: 0 = Not at all Total KELSEY-7 score (0-4 normal; 5-9 mild; 10-14 moderate; 15-21 severe): 0 Source: Developed by Drs. Chester Edgar, Denisse Walden, Gautam Grayson and colleagues, with an educational raf from [employer] Review of Systems Const All systems reviewed & are unremarkable except as noted in HPI and below Reports no additional complaints Eyes Reports no additional complaints ENT Reports no additional complaints Card Reports no additional complaints Resp Reports no additional complaints GI Reports no additional complaints Reports no additional complaints Physical exam (Primary Care) Vital Signs: Last Vital Signs Pulse 75 03/20/23 11:40 BP 130/62 03/20/23 11:40 Pulse Ox 95 03/20/23 11:40 Oxygen Delivery Method Room Air 03/20/23 11:40 BMI result Body Mass Index 32.6 Tobacco/Smoking Status: Tobacco use Status Tobacco use date assessed 03/20/23 03/20/23 11:49 Patient Tobacco Use Status Former Tobacco user (30 03/20/23 11:40 years ago) e-Cigarette/Vaping Use Never Used 03/20/23 11:40 PHQ-9: PHQ-9 Score PHQ-9: Total score 0 03/20/23 12:00 Depression Screening Interpretation: Negative Thrive Assessment: Date of Thrive Assessment Date Thrive assessed 03/20/23 03/20/23 12:00 Const General: no acute distress HENMT Head: Yes normal to inspection Ears: hearing grossly normal bilaterally Mouth: Normal oral and palatal mucosa present Eyes General: appearance normal, both eyes and all related structures Neck Neck: Yes no lymphadenopathy and Yes supple Resp Effort & Inspection: normal respiratory effort Auscultation: clear to auscultation bilaterally Cardio Rhythm: regular rhythm Heart sounds: S1 normal heart sound present and S2 normal heart sound present GI Inspection: Yes normal to inspection Palpation (GI): Soft to palpation Percussion: Yes normal to percussion Auscultation: normal bowel sounds Assessment and Plan Assessment & Plan (1) Cardiomyopathy: Comment: Echo 04/26 EF 45%, lower from 60% 2021, started Valsartan 40 mg by Cardiology 04/26, stress test pending 05/24 Code(s): I42.9 - Cardiomyopathy, unspecified Plan: Patient will have repeat echocardiogram next and follow-up with cardiology, Farxiga 5 mg daily started for diabetes and cardiomyopathy (2) Persistent atrial fibrillation: Comment: Decided to pursue rate control as patient has remained asymptomatic with no worsening heart failure syndrome and has failed rhythm, Code(s): I48.19 - Other persistent atrial fibrillation Plan: Continue Pradaxa and metoprolol and diltiazem for rate control (3) Diabetes: Comment: IDDM A1C goal less than 7.5 Code(s): E11.9 - Type 2 diabetes mellitus without complications Plan: A1c is 7.7, ADA diet increase exercise weight loss discussed with the patient continue current medications but decrease metformin to 500 mg twice a day and add Farxiga 5 mg. Patient is going back to [place] next month and will follow-up in 6 months (4) COPD (chronic obstructive pulmonary disease): Code(s): J44.9 - Chronic obstructive pulmonary disease, unspecified Plan: Continue Trelegy Orders: Orders Comprehensive [place]. Panel Fast 6 Months E11.9 - Type 2 diabetes mellitus without complications, I42.9 - Cardiomyopathy, unspecified, I48.19 - Other persistent atrial fibrillation, J44.9 - Chronic obstructive pulmonary disease, unspecified Microalbumin, Random (w Creat) 6 Months E11.9 - Type 2 diabetes mellitus without complications, I42.9 - Cardiomyopathy, unspecified, I48.19 - Other persistent atrial fibrillation, J44.9 - Chronic obstructive pulmonary disease, unspecified Hemoglobin A1c 6 Months E11.9 - Type 2 diabetes mellitus without complications, I42.9 - Cardiomyopathy, unspecified, I48.19 - Other persistent atrial fibrillation, J44.9 - Chronic obstructive pulmonary disease, unspecified Lipid Panel 6 Months E11.9 - Type 2 diabetes mellitus without complications, I42.9 - Cardiomyopathy, unspecified, I48.19 - Other persistent atrial f ibrillation, J44.9 - Chronic obstructive pulmonary disease, unspecified Complete Blood Count Auto Diff 6 Months E11.9 - Type 2 diabetes mellitus without complications, I42.9 - Cardiomyopathy, unspecified, I48.19 - Other persistent atrial fibrillation, J44.9 - Chronic obstructive pulmonary disease, unspecified Medications: New dapagliflozin propanediol (Farxiga) 5 mg PO DAILY 90 tabs 1RF Changed From metformin 1,000 mg PO BID 180 tabs 0RF To metformin 500 mg (1/2 x 1,000 mg) PO BID 180 tabs 0RF Refilled blood-glucose sensor (Dexcom G6 Sensor device) As directed 9 ea 4RF E11.9 - Type 2 diabetes mellitus without complications dabigatran etexilate (Pradaxa) 150 mg PO BID 180 caps 3RF Coding Level of Care Code Est Pt Level 4 (80788) Diagnoses Cardiomyopathy I42.9 Persistent atrial fibrillation I48.19 Diabetes E11.9 COPD (chronic obstructive pulmonary disease) J44.9
== END 2023-03-20 12:41 | disposition home or self-care (01) ==
LOC: HO.HMGC 11:26
PROVIDERS: PCP Internal Medicine; Visit Provider Internal Medicine
DX: I42.9 Cardiomyopathy, unspecified (principal); I48.19 Other persistent atrial fibrillation; E11.9 Type 2 diabetes mellitus without complications; J44.9 Chronic obstructive pulmonary disease, unspecified
CPT/HCPCS: 99214

== ENCOUNTER → 2023-04-16 09:32 | Outpatient (REF) | payer MEDICARE, SELFPAY ==
--- NOTE | 2023-04-16 09:34 | CA_ITS ---
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 The visually estimated ejection fraction is between 50-55%. - No obvious valvular pathology seen on this study. Findings Left Ventricle Normal left ventricular cavity size. There is mildly increased left ventricular wall thickness. The left ventricular systolic function is low normal. The visually estimated ejection fraction is between 50-55%. There is mild global hypokinesis. Diastolic function is indeterminate on the basis of available data. Right Ventricle Moderately increased right ventricular cavity size. There is mildly decreased right ventricular systolic function. Atria Moderate biatrial enlargement. Aortic Valve There is a normal trileaflet aortic valve. There is no aortic valve stenosis. There is no aortic valve regurgitation. Mitral Valve The mitral valve appears normal. There is trace mitral valve regurgitation. There is no mitral valve stenosis. Pulmonic Valve There is trace pulmonic valve regurgitation. Tricuspid Valve Normal tricuspid valve structure. There is mild tricuspid valve regurgitation. There is no evidence of pulmonary hypertension. Great Vessels The asc aorta is normal in size. Venous The inferior vena cava is normal in size and collapses greater than 50% with inspiration. Pericardium/Pleural There is no evidence of pericardial effusion. Prior Study Comparison No significant change compared to prior study dated: 04/12/2022. Recommendations, Care & Conclusions No obvious valvular pathology seen on this study. Measurements 2D Linear Measurements IVSd: 1.18 0.6-0.9/0.6-1.0 cm LVIDd: 5.15 3.9-5.3/4.2-5.9 cm LVIDd Index: 2.50 2.4-3.2/2.2-3.1 cm/m2 LVIDs: 3.39 2.0-3.6 cm LVPWd: 1.17 0.7-1.1 cm LA Diam: 4.20 2.7-3.8/3.0-4.0 cm LAIDs Index: 2.04 1.5-2.3 cm/m2 LV Mass: 296.70 67-162/88-224 g LV Mass Index: 144.03 43-95/49-115 g/m2 LVOT Diam: 2.40 3.0+(-)1.3 cm 2D Systolic Function EF 4C: 51.90 >55% EF 2C: 52.20 >55% EF BiP: 51.70 >55% Mitral Valve MV Pk E: 0.81 MV Decel Time: 231.00 E'Lateral: 8.52 E'Medial: 6.02 E/E' Med: 13.40 E/E' Lat: 9.50 PHT: 68.00 MVA PHT: 3.24 Decel Cobb: 3.54 Aortic Valve AoV Pk Jaime: 0.93 AoV Pk Grad: 3.00 ANDREA: 2.93 LVOT LVOT Pk Jaime: 0.60 LVOT Mn Jaime: 0.41 LVOT VTI: 0.13 LVOT Pk Grad: 1.00 LVOT Mn Grad: 1.00 LVOT Diam: 2.40 LVOT Area: 4.52 Diastolic Function MV Pk E: 0.81 E'Medial: 6.02 E/E' Med: 13.40 E' Laterial: 8.52 E/E' Lat: 9.50 Right Ventricle TAPSE (mm): 18.30 TVS' Jaime: 8.56 Tricuspid Valve TR Pk Jaime: 2.72 TR Pk Grad: 30.00 RA Press: 3.00 RVSP: 33.00 Great Vessels Aorta Sinus of Valsalva: 3.82 2.0-3.5 cm Ao Asc: 3.70 2.1-3.4 cm Updated in Other Vendor System with Status of Final Rolf Alfredo MD electronically signed on 04/16/2023 10:22:16 AM with status of Final
== END ==
LOC: HO.CARD 09:32
PROVIDERS: PCP Internal Medicine; Visit Provider Internal Medicine Cardiovascular Disease
DX: I42.9 Cardiomyopathy, unspecified (principal)
CPT/HCPCS: 93306

== ENCOUNTER → 2023-04-16 09:34 | Outpatient (BNV) | payer MEDICARE, SELFPAY | PROVIDERS: PCP Internal Medicine; Visit Provider Internal Medicine | DX: I36.1 Nonrheumatic tricuspid (valve) insufficiency (principal); I42.9 Cardiomyopathy, unspecified | CPT/HCPCS: 93306 ==

== ENCOUNTER 2023-04-30 10:24 | Outpatient (AMB) | payer MEDICARE, SELFPAY ==
--- NOTE | 2023-04-30 10:29 | MHC.OFFVIS ---
Intake Vital Signs 04/30/23 10:31 Height 5 ft 7 in Weight 216 lb 0.848 oz BMI 33.8 BP 120/80 Blood Pressure Location Lt brachial Position Sitting Pulse 79 Intake Visit Reasons: 1 yr f/up Intake Note: 1 year follow up with EKG no changes feesl good Color Matcher Required: Yes Color Matcher Name: jez Lopez Allergies No Known Allergies [No Known Allergies*] Allergy (Verified 03/20/23 11:44) Medication List - Last Reconciled 04/30/23 by Ruddy Solomon MD albuterol sulfate 90 mcg/actuation 2 puffs inhalation Q6H PRN blood sugar diagnostic 1 strip miscellaneous BID 90 days blood sugar diagnostic ([employer] Ultra Test strips) Test blood sugar 3 times per day coenzyme Q10 60 mg PO DAILY dabigatran etexilate (Pradaxa) 150 mg PO BID diltiazem HCl 180 mg PO DAILY dulaglutide (Trulicity) 1.5 mg (0.5 mL) subcut QWEEK empagliflozin (Jardiance) 10 mg PO DAILY flash glucose scanning reader ([employer] Jesu 2 [place]) As directed flash glucose sensor (FreeStyle Jesu 2 Sensor kit) As directed jxexohssxas-tfxnzlxko-isxchecn 100-62.5-25 mcg (Trelegy Ellipta) 1 inh inhalation DAILY furosemide 20 mg PO DAILY Humalog KwikPen Insulin (insulin lispro) 10 units (0.1 mL) subcut TID NS insulin detemir U-100 30 units (0.3 mL) subcut DAILY levothyroxine 50 mcg PO DAILY mecobalamin (vitamin B12) 1,000 mcg sublingual DAILY metformin 500 mg (1/2 x 1,000 mg) PO BID metoprolol succinate ER 100 mg PO BID multivit-mins no.11-folic acid PO pen needle, diabetic (BD Ultra-Fine Short Pen Needle) 1 ea subcut TID 30 days rosuvastatin (Crestor) 20 mg PO DAILY sildenafil (Viagra) 25 mg PO DAILY PRN tamsulosin 0.8 mg (2 x 0.4 mg) PO BEDTIME valsartan 40 mg PO DAILY HPI HPI Comments History of Present Illness Details Ad comes for follow-up. He had a fall while he was in [place], accidental fall related to unusual steps. He ended up having multiple rib fractures and hemothorax undergoing thoracocentesis. Took some time to heal. No falls since then. He denies any cardiovascular symptoms. Denies any worsening shortness of breath, orthopnea, PND. No exertional chest pain. No lightheadedness, syncope. No prolonged palpitation irregular heartbeat. His last echocardiogram recently showed LVEF of 50-55%. He takes all his medications regularly. No major bleeding issues or neurologic events. [facility] Medical History (Updated 04/30/23 @ 11:00 by Ruddy Solomon MD) Chronic atrial fibrillation Persistent atrial fibrillation Paroxysmal atrial fibrillation Cataract Lower back pain Left shoulder pain HTN (hypertension) Diastolic dysfunction Cough Chronic iron deficiency anemia BPH (benign prostatic hyperplasia) Hyperlipidemia COPD (chronic obstructive pulmonary disease) Diabetes Surgical History History of esophagogastroduodenoscopy (EGD) H/O colonoscopy S/P cholecystectomy Family History Father No problems noted. Mother No problems noted. Social History Housing: House Alcohol intake: never Patient Tobacco Use Status: Former Tobacco user (30 years ago) e-Cigarette/Vaping Use: Never Used Current occupational status: retired Cognitive needs: No Hearing needs: No Vision needs: No Review of Systems Const Denies chills, Denies fatigue, Denies fever(s), Denies frequent falls, Denies weakness, Denies weight gain and Denies weight loss ENT Denies dizziness Card Denies chest pain, Denies leg edema, Denies lightheadedness, Denies palpitations, Denies dyspnea, Denies dyspnea on exertion, Denies orthopnea and Denies other (loss of consciousness) Resp Denies cough, Denies dyspnea and Denies dyspnea on exertion GI Denies hematochezia and Denies change in stool character Musc Denies abnormal gait, Denies muscle weakness, Denies numbness, Denies radiating pain into limb and Denies tingling Neuro Denies abnormal gait, Denies dizziness, Denies frequent falls, Denies numbness, Denies tingling and Denies weakness Endo Denies fatigue and Denies palpitations Physical Exam Vital Signs: Last Vital Signs Pulse 79 04/30/23 10:31 BP 120/80 04/30/23 10:31 BMI result Body Mass Index 33.8 Const General: cooperative, healthy appearing, comfortable and no acute distress Orientation/consciousness: patient oriented x3 Neck Neck: Yes normal visual inspection and Yes no JVD Carotids: normal carotid upstroke Resp Effort & Inspection: normal respiratory effort Auscultation: clear to auscultation bilaterally, no crackles, no rales, no rhonchi and no wheezes Cardio Jugular venous distension: no JVD Rate: regular rate Rhythm: abnormal rhythm irregularly irregular Heart sounds: S1 normal heart sound present, S2 normal heart sound present, no gallops, no murmurs and no rubs Peripheral pulses: Peripheral pulses 2+ throughout GI Inspection: Yes normal to inspection Neuro General: patient oriented x3 Extrem General: Yes normal to inspection and No no pedal edema Office Procedures EKG Details: EKG shows rate controlled atrial fibrillation with nonspecific ST T wave abnormality. [id number], Complete Assessment & Plan Assessment & Plan (1) Chronic atrial fibrillation: Code(s): I48.20 - Chronic atrial fibrillation, unspecified Plan: Chronic rate control atrial fibrillation without any signs or symptoms of decompensated heart failure. Patient decided to pursue rate control approach as he had remained asymptomatic after cardioversion. Currently doing well. Continue current rate control with Cardizem and metoprolol. Advise to continue full oral anticoagulation, currently on Pradaxa 150 mg b.i.d.. Quarterly renal function test should be pursued. (2) Cardiomyopathy: Comment: Echo 04/26 EF 45%, lower from 60% 2021, started Valsartan 40 mg by Cardiology 04/26, stress test pending 05/24 Code(s): I42.9 - Cardiomyopathy, unspecified Plan: Cardiomyopathy which is now with near normal LVEF of 50-55% with current neurohormonal modulation with metoprolol and valsartan as well as with rate control. 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 No signs or symptoms of heart failure. Continue current neurohormonal modulation rate control. Signs and symptoms of heart failure were discussed. Encouraged to continue to participate in physical activity as tolerated. Will follow up in the clinic in 1 year's time, sooner p.r.n.. Thank you for allowing me to partake in his care Orders: Orders CA echo transthoracic complete 50 Weeks I42.9 - Cardiomyopathy, unspecified Coding Level of Care Code Est Pt Level 4 (15750) Diagnoses Chronic atrial fibrillation I48.20 Cardiomyopathy I42.9 CPT Codes EKG - CPT: 99181-[id number], Complete ([id number])
[2023-04-30 10:31] VITALS: BP 120/80; PULSE 79; BMI 33.8
== END 2023-04-30 11:26 | disposition home or self-care (01) ==
PROVIDERS: Visit Provider Internal Medicine Cardiovascular Disease
DX: I48.20 Chronic atrial fibrillation, unspecified (principal); I42.9 Cardiomyopathy, unspecified
CPT/HCPCS: 93010; 99214

== ENCOUNTER → 2023-04-30 10:24 | Outpatient (BNVA) | payer MEDICARE, SELFPAY | PROVIDERS: Visit Provider Internal Medicine Cardiovascular Disease | DX: I48.20 Chronic atrial fibrillation, unspecified (principal); I42.9 Cardiomyopathy, unspecified | CPT/HCPCS: 93005; 99212 ==

== ENCOUNTER 2023-05-01 14:04 | Outpatient (AMB) | payer MEDICARE, SELFPAY ==
--- NOTE | 2023-05-01 14:13 | A.OFFPC_ITS ---
Vital Signs 05/01/23 14:27 Height 5 ft 7 in Weight 216 lb BMI 33.8 BP 136/64 Blood Pressure Location Lt brachial Position Sitting Pulse 87 Pulse Source Pulse Oximeter Pulse Oximetry (%) 95 Oxygen Delivery Method Room Air Intake Visit Reasons: Follow up visit Intake Note: Pt is here today for a follow up visit. Allergies No Known Allergies [No Known Allergies*] Allergy (Verified 05/01/23 14:29) Medication List - Last Reconciled 05/01/23 by Jayleen Molina MD albuterol sulfate 90 mcg/actuation 2 puffs inhalation Q6H PRN blood sugar diagnostic 1 strip miscellaneous BID 90 days blood sugar diagnostic ([employer] Ultra Test strips) Test blood sugar 3 times per day coenzyme Q10 60 mg PO DAILY dabigatran etexilate (Pradaxa) 150 mg PO BID diltiazem HCl 180 mg PO DAILY dulaglutide (Trulicity) 1.5 mg (0.5 mL) subcut QWEEK empagliflozin (Jardiance) 10 mg PO DAILY flash glucose scanning reader ([email or web address] Jesu 2 [place]) As directed flash glucose sensor (FreeStyle Jesu 2 Sensor kit) As directed elftlfngrhu-ywfntrlgh-jsocfjvf 100-62.5-25 mcg (Trelegy Ellipta) 1 inh inhalation DAILY furosemide 20 mg PO DAILY Humalog KwikPen Insulin (insulin lispro) 10 units (0.1 mL) subcut TID NS insulin detemir U-100 30 units (0.3 mL) subcut DAILY levothyroxine 50 mcg PO DAILY mecobalamin (vitamin B12) 1,000 mcg sublingual DAILY metformin 500 mg (1/2 x 1,000 mg) PO BID metoprolol succinate ER 100 mg PO BID multivit-mins no.11-folic acid PO pen needle, diabetic (BD Ultra-Fine Short Pen Needle) 1 ea subcut TID 30 days rosuvastatin (Crestor) 20 mg PO DAILY sildenafil (Viagra) 25 mg PO DAILY PRN tamsulosin 0.8 mg (2 x 0.4 mg) PO BEDTIME valsartan 40 mg PO DAILY Tobacco use date assessed: 03/20/23 HPI Follow up visit HPI Details Patient presents for the follow-up of type 2 diabetes hypertension hyperlipidemia chronic kidney disease stage 3 hypothyroidism paroxysmal AFib. he is going to [email or web address] in few days at least for 3 months. [facility] Medical History (Updated 05/01/23 @ 15:07 by Jayleen Molina MD) Chronic atrial fibrillation Persistent atrial fibrillation Paroxysmal atrial fibrillation Cataract Lower back pain Left shoulder pain HTN (hypertension) Diastolic dysfunction Cough Chronic iron deficiency anemia BPH (benign prostatic hyperplasia) Hyperlipidemia COPD (chronic obstructive pulmonary disease) Diabetes Surgical History History of esophagogastroduodenoscopy (EGD) H/O colonoscopy S/P cholecystectomy Family History Father No problems noted. Mother No problems noted. Social History Housing: House Alcohol intake: never Patient Tobacco Use Status: Former Tobacco user (30 years ago) e-Cigarette/Vaping Use: Never Used Current occupational status: retired Cognitive needs: No Hearing needs: No Vision needs: No Questionnaire Thrive Questionnaire Date Thrive assessed: 03/20/23 KELSEY-7 AMB Questionnaire KELSEY-7 Date KELSEY - 7 assessed: 03/20/23 Source: Developed by Drs. Chester Edgar, Denisse Walden, Gautam Grayson and colleagues, with an educational raf from [employer]. Review of Systems Const All systems reviewed & are unremarkable except as noted in HPI and below Reports no additional complaints Eyes Reports no additional complaints ENT Reports no additional complaints Card Reports no additional complaints Resp Reports no additional complaints GI Reports no additional complaints Reports no additional complaints Physical exam (Primary Care) Vital Signs: Last Vital Signs Pulse 87 05/01/23 14:27 BP 136/64 05/01/23 14:27 Pulse Ox 95 05/01/23 14:27 Oxygen Delivery Method Room Air 05/01/23 14:27 BMI result Body Mass Index 33.8 Tobacco/Smoking Status: Tobacco use Status Tobacco use date assessed 03/20/23 05/01/23 14:14 Patient Tobacco Use Status Former Tobacco user (30 05/01/23 14:14 years ago) e-Cigarette/Vaping Use Never Used 05/01/23 14:14 Thrive Assessment: Date of Thrive Assessment Date Thrive assessed 03/20/23 05/01/23 14:14 Const General: no acute distress HENMT Head: Yes normal to inspection Ears: hearing grossly normal bilaterally Eyes General: appearance normal, both eyes and all related structures Neck Neck: Yes no lymphadenopathy and Yes supple Resp Effort & Inspection: normal respiratory effort Auscultation: clear to auscultation bilaterally Cardio Rhythm: regular rhythm Heart sounds: S1 normal heart sound present and S2 normal heart sound present GI Inspection: Yes normal to inspection Palpation (GI): Soft to palpation Percussion: Yes normal to percussion Auscultation: normal bowel sounds Assessment and Plan Assessment & Plan (1) Chronic atrial fibrillation: Comment: Rate control Code(s): I48.20 - Chronic atrial fibrillation, unspecified Plan: Continue anticoagulation and rate controlled on metoprolol and diltiazem (2) Hyperlipidemia: Code(s): E78.5 - Hyperlipidemia, unspecified Plan: Continue statin (3) Cardiomyopathy: Comment: Echo 04/26 EF 45%, lower from 60% 2021, started Valsartan 40 mg by Cardiology , Echo 04/27 EF 50%, no segmental wall motion abnormality, Code(s): I42.9 - Cardiomyopathy, unspecified Plan: Continue current medications and follow-up with Cardiology (4) Diabetes: Comment: IDDM A1C goal less than 7.5 Code(s): E11.9 - Type 2 diabetes mellitus without complications Plan: A1c is 7.7, ADA diet increase exercise weight loss discussed with the patient increase Trulicity to 3 mg weekly continue Jardiance low-dose of metformin and insulin. (5) COPD (chronic obstructive pulmonary disease): Code(s): J44.9 - Chronic obstructive pulmonary disease, unspecified Plan: Continue Trelegy (6) Chronic kidney disease, stage 3: Code(s): N18.30 - Chronic kidney disease, stage 3 unspecified Plan: Monitor renal function avoid nephrotoxins continue Jardiance Medications: New Trulicity (dulaglutide) 3 mg (0.5 mL) subcut QWEEK 6 mL 2RF NS Refilled flash glucose sensor (FreeStyle Jesu 2 Sensor kit) As directed 6 ea 1RF E11.9 - Type 2 diabetes mellitus without complications mzvomluyqtx-bbqllybkq-tsfxgjpu 100-62.5-25 mcg (Trelegy Ellipta) 1 inh inhalation DAILY 56 ea 5RF Discontinued dulaglutide (Trulicity) Discontinued Reason: Doctor's Order 1.5 mg (0.5 mL) subcut QWEEK 6 mL 4RF Coding Level of Care Code Est Pt Level 4 (44928) Diagnoses Chronic atrial fibrillation I48.20 Hyperlipidemia E78.5 Cardiomyopathy I42.9 Diabetes E11.9 COPD (chronic obstructive pulmonary disease) J44.9 Chronic kidney disease, stage 3 N18.30
[2023-05-01 14:27] VITALS: BP 136/64; PULSE 87; O2SAT 95; BMI 33.8
== END 2023-05-01 15:09 | disposition home or self-care (01) ==
PROVIDERS: PCP Internal Medicine; Visit Provider Internal Medicine
DX: I48.20 Chronic atrial fibrillation, unspecified (principal); E11.22 Type 2 diabetes mellitus with diabetic chronic kidney disease; J44.9 Chronic obstructive pulmonary disease, unspecified; N18.30 Chronic kidney disease, stage 3 unspecified; I42.9 Cardiomyopathy, unspecified; E78.5 Hyperlipidemia, unspecified
CPT/HCPCS: 99214

== ENCOUNTER 2024-04-23 09:51 | Outpatient (AMB) | payer MEDICARE, SELFPAY ==
[2024-04-23 10:01] VITALS: BP 110/52; PULSE 69; BMI 33.2
--- NOTE | 2024-04-23 10:01 | MHC.OFFVIS ---
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 Accompanied by: Self / Same As Patient Allergies No Known Allergies [No Known Allergies*] Allergy (Verified 05/01/23 14:29) Medication List - Last Reconciled 04/23/24 by Ruddy Solomon MD albuterol sulfate 90 mcg/actuation 2 puffs inhalation Q6H PRN blood sugar diagnostic 1 strip miscellaneous BID 90 days blood sugar diagnostic ([employer] Ultra Test strips) Test blood sugar 3 times per day coenzyme Q10 60 mg PO DAILY dabigatran etexilate (Pradaxa) 150 mg PO BID diltiazem HCl CD 180 mg PO DAILY empagliflozin (Jardiance) 10 mg PO DAILY flash glucose scanning reader (En[employer]age TechnologiesStyle Jesu 2 [place]) As directed flash glucose sensor (FreeStyle Jesu 2 Sensor kit) As directed melsqqrxxdd-yiwosdetb-mqynqqnd 100-62.5-25 mcg (Trelegy Ellipta) 1 inh inhalation DAILY furosemide 20 mg PO DAILY Humalog KwikPen Insulin (insulin lispro) 10 units (0.1 mL) subcut TID NS Lantus Solostar U-100 Insulin (insulin glargine) 30 units (0.3 mL) subcut DAILY NS levothyroxine 50 mcg PO DAILY mecobalamin (vitamin B12) 1,000 mcg sublingual DAILY metformin 500 mg (1/2 x 1,000 mg) PO BID metoprolol succinate ER 100 mg PO BID multivit-mins no.11-folic acid PO pen needle, diabetic (BD Ultra-Fine Short Pen Needle) 1 ea subcut TID 30 days rosuvastatin (Crestor) 20 mg PO DAILY sildenafil (Viagra) 25 mg PO DAILY PRN tamsulosin 0.8 mg (2 x 0.4 mg) PO BEDTIME Trulicity (dulaglutide) 3 mg (0.5 mL) subcut QWEEK NS valsartan 40 mg PO DAILY HPI Comments Details: Ed comes for follow-up after a year. He has been in [place] for most of the year. He remains active and functional without any worsening cardiac symptoms. Denies any clear orthopnea, PND, worsening exertional shortness of breath. Does have leg edema as an on furosemide as per him. He said he has not had any hospitalization related to heart issues. Denies any prolonged palpitation irregular heartbeat or fast heart rate. No lightheadedness, syncope. Denies any exertional chest pain. Takes all his medications. No bleeding issues or neurologic events. [facility] Medical History Chronic atrial fibrillation Persistent atrial fibrillation Paroxysmal atrial fibrillation Cataract Lower back pain Left shoulder pain HTN (hypertension) Diastolic dysfunction Cough Chronic iron deficiency anemia BPH (benign prostatic hyperplasia) Hyperlipidemia COPD (chronic obstructive pulmonary disease) Diabetes Surgical History History of esophagogastroduodenoscopy (EGD) H/O colonoscopy S/P cholecystectomy Family History Father No problems noted. Mother No problems noted. Social History Housing: House Alcohol intake: never Patient Tobacco Use Status: Former Tobacco user (30 years ago) e-Cigarette/Vaping Use: Never Used Current occupational status: retired Cognitive needs: No Hearing needs: No Vision needs: No Review of Systems Const Denies chills, Denies fatigue, Denies fever(s), Denies weight gain and Denies weight loss ENT Denies dizziness Card Denies chest pain, Denies leg edema, Denies lightheadedness, Denies palpitations, Denies dyspnea on exertion, Denies orthopnea and Denies other Resp Denies cough and Denies dyspnea on exertion GI Denies hematochezia and Denies change in stool character Musc Denies abnormal gait, Denies muscle weakness, Denies numbness, Denies radiating pain into limb and Denies tingling Neuro Denies abnormal gait, Denies dizziness, Denies numbness and Denies tingling Endo Denies fatigue and Denies palpitations Physical Exam Vital Signs: Last Vital Signs Pulse 69 04/23/24 10:01 BP 110/52 L 04/23/24 10:01 BMI result Body Mass Index 33.2 Const General: cooperative, healthy appearing, comfortable and no acute distress Orientation/consciousness: patient oriented x3 Neck Neck: Yes normal visual inspection and Yes no JVD Carotids: normal carotid upstroke Resp Effort & Inspection: normal respiratory effort Auscultation: clear to auscultation bilaterally, no crackles, no rales, no rhonchi and no wheezes Cardio Jugular venous distension: no JVD Rate: regular rate Rhythm: abnormal rhythm irregularly irregular Heart sounds: S1 normal heart sound present, S2 normal heart sound present, no gallops, no murmurs and no rubs Peripheral pulses: Peripheral pulses 2+ throughout GI Inspection: Yes normal to inspection Neuro General: patient oriented x3 Extrem General: No no pedal edema, No clubbing, No cyanosis and Yes edema (Plus one) Office Procedures EKG Details: EKG shows atrial fibrillation isolated Q-wave in lead 3 which could be due to body habitus with no significant ST T wave changes [id number], Complete Assessment & Plan Assessment & Plan (1) Chronic atrial fibrillation: Comment: Rate control Code(s): I48.20 - Chronic atrial fibrillation, unspecified Category: Medical Plan: Chronic atrial fibrillation has failed rhythm control approach and has done well with rate control. At this point time given the chronicity of atrial fibrillation will pursue rate control approach and would not be successful with rhythm control approach. Continue current rate control with Cardizem as well as metoprolol therapy. Continue full oral anticoagulation, currently on dabigatran 150 mg b.i.d. which she was tolerated well. Continue monitor renal function every 3 months even when he is not [place] the country. This was discussed with him. Will obtain basic metabolic profile in near future. (2) Cardiomyopathy: Comment: Echo 04/26 EF 45%, lower from 60% 2021, started Valsartan 40 mg by Cardiology , Echo 04/27 EF 50%, no segmental wall motion abnormality, Code(s): I42.9 - Cardiomyopathy, unspecified Category: Medical Plan: Prior cardiomyopathy issue with last echocardiogram showing LVEF of 50-55% on current neurohormonal modulation with valsartan as well as metoprolol therapy. Will follow-up echocardiogram near future. Has no overt signs of heart failure at this point time but he is at risk for development of heart failure given his chronic atrial fibrillation. Symptoms were discussed advised to call me with any new symptoms. Currently on low-dose Lasix therapy for leg edema as well as Jardiance therapy which is for diabetes. Daily weight monitoring avoidance salt loading was discussed. Will follow up in the clinic in 1 year's time, sooner p.r.n.. Thank for allowing me to partake in his care Orders: Orders Basic Metabolic Panel Today I48.20 - Chronic atrial fibrillation, unspecified CA echo transthoracic complete Today I48.20 - Chronic atrial fibrillation, unspecified Coding Level of Care Code Est Pt Level 4 (26018) Complex EM visit Add On G2211 Diagnoses Chronic atrial fibrillation I48.20 Cardiomyopathy I42.9 CPT Codes EKG - CPT: 81606-[id number], Complete ([id number])
--- OUTSIDE RECORDS SUMMARY | 2024-04-23 10:44 | XMS_ITS | Patient Health Record ---
Author Organization [facility] Address [address] [place] [id number] Care Team Providers Care Gray Tender Name Role Phone Jayleen Molina MD Primary Care Provider Mckinley Galloway Jr Unavailable REASON FOR REFERRAL No Information MEDICATIONS Medication SIG (Take, Route, Frequency, Duration) Notes Start Date End Date Status metFORMIN HCl 1000 MG 1 tablet with meal s Orally Twice a day Active Levemir 100 UNIT/ML as directed Subcutan eous as directed Active Levothyroxine Sodium 50 MCG 1 tablet on an empty stomach in the morning Orally Once a day Active Anoro Ellipta 62.5-25 MCG/INH Inhalation Active Rosuvastatin Calcium 20 MG Orally Active dilTIAZem HCl ER Coated Beads 180 MG Orally Active Metoprolol Succinate ER 50 MG 1 tablet Orally twice a day Active Trulicity 1.5 MG/0.5ML Subcutaneous Active MiraLax (colon prep) 8.3 ounce ((238) grams mixed with Gatorade or Crystal Light orally begin at 5:00 p.m. the day before the procedure for 1 day 06/13/2020 Active CoQ-10 Active Tamsulosin HCl 0.4 MG 1 capsule Orally O nce a day Active Fish Oil + D3 Active Vitamin B12 1000 MCG 1 tablet Orally Onc e a day Active Budesonide-Formoterol Fumarate 160-4.5 MCG/ACT Inhalation Act brynn Centrum Adults - 1 Orally QD A ctive Furosemide 20 MG Orally Act brynn ProAir HFA 108 (90 Base) MCG/ACT 2 puffs as needed Inhalation every 6 hrs/prn Active HumaLOG 100 UNIT/ML as directed Subcutan eous as directed Active IMMUNIZATIONS Vaccine Route Administration Date Status Comme nts Flu vaccine no Preserv 3 and > Unknown 12/25/2016 Admin istered Influenza Unknown 03/09/2020 Administered SOCIAL HISTORY Tobacco Use: Social History Observation Description Date Details (start date - stop date) Former Smoker NA - NA Sex Assigned At : Social History Observation Description Sex Assigned At Unknown Tobacco Use/Smoking Question Answer Notes Patient is a former smoker How long has it been since you last smoked? > 10 years Alcohol Screen Question Answer Notes Did you have a drink contain ing alcohol in the past year? Yes How often did you have a dri nk containing alcohol in the past year? Monthly or less (1 point) How many drinks did you have on a typical day when you were drinking in the past year? 1 or 2 drinks (0 point) How often did you have 6 or more drinks on one occasion in the past year? 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) Active confirmed [id number] PLAN OF TREATMENT Future Test Test Name Order Date UPPER GI ENDOSCOPY 05/01/2017 COLONOSCOPY 05/01/2017 COLONOSCOPY 06/13/2020 Insurance Providers Payer Name Payer Address Payer Phone Subscriber Number Group Number Insured Name Patient Relationship to Insured Coverage Start Date Coverage End Date [place] [address] [place] [id number] LINDA QUESADA Self - patient is the insured MEDICAL (GENERAL) HISTORY Medical History History ICD Code hypertension asthma - mild intermittent diabetes II hyperlipidemia neuropathy hypothyroidism Surgical History Surgery Date(Month/Year) finger surgery cholecystectomy
== END 2024-04-23 10:24 | disposition home or self-care (01) ==
PROVIDERS: PCP Internal Medicine; Visit Provider Internal Medicine Cardiovascular Disease
DX: I48.20 Chronic atrial fibrillation, unspecified (principal); I42.9 Cardiomyopathy, unspecified
CPT/HCPCS: 93010; 99214; G2211

== ENCOUNTER → 2024-04-23 09:51 | Outpatient (BNVA) | payer MEDICARE, SELFPAY | PROVIDERS: PCP Internal Medicine; Visit Provider Internal Medicine Cardiovascular Disease | DX: I48.20 Chronic atrial fibrillation, unspecified (principal); I42.9 Cardiomyopathy, unspecified; R94.31 Abnormal electrocardiogram [ECG] [EKG] | CPT/HCPCS: 93005; 99212 ==

== ENCOUNTER 2024-04-29 11:05 | Outpatient (AMB) | payer MEDICARE, SELFPAY ==
[2024-04-29 11:09] VITALS: BP 110/76; PULSE 72; RESP 20; TEMP 36.9; O2SAT 98; BMI 33.2
--- NOTE | 2024-04-29 11:09 | A.OFFPC_ITS ---
Vital Signs 04/29/24 11:09 Height 5 ft 7 in Weight 212 lb BMI 33.2 BP 110/76 Blood Pressure Location Lt brachial Position Sitting Respiration 20 Pulse 72 Pulse Source Pulse Oximeter Temp 98.4 F Temp Source Oral Pulse Oximetry (%) 98 Oxygen Delivery Method Room Air Intake Visit Reasons: Med review Intake Note: Pt is here today for a follow up visit. Allergies No Known Allergies [No Known Allergies*] Allergy (Verified 04/29/24 11:55) Medication List - Last Reconciled 04/29/24 by Jayleen Molina MD albuterol sulfate 90 mcg/actuation 2 puffs inhalation Q6H PRN apixaban (Eliquis) 5 mg PO BID blood sugar diagnostic 1 strip miscellaneous BID 90 days blood sugar diagnostic (Klevostiuch Ultra Test strips) Test blood sugar 3 times per day coenzyme Q10 60 mg PO DAILY diltiazem HCl CD 180 mg PO DAILY empagliflozin (Jardiance) 10 mg PO DAILY flash glucose scanning reader (GenerationOneStyle Jesu 2 [place]) As directed flash glucose sensor (FreeStyle Jesu 2 Sensor kit) As directed cbkiklsjhyk-gwmwbxbel-ugdmxwft 100-62.5-25 mcg (Trelegy Ellipta) 1 inh inhalation DAILY furosemide 20 mg PO DAILY Humalog KwikPen Insulin (insulin lispro) 10 units (0.1 mL) subcut TID NS Lantus Solostar U-100 Insulin (insulin glargine) 30 units (0.3 mL) subcut DAILY NS levothyroxine 50 mcg PO DAILY metformin 500 mg (1/2 x 1,000 mg) PO BID metoprolol succinate ER 100 mg PO BID multivit-mins no.11-folic acid PO pen needle, diabetic (BD Ultra-Fine Short Pen Needle) 1 ea subcut TID 30 days rosuvastatin (Crestor) 20 mg PO DAILY tamsulosin 0.8 mg (2 x 0.4 mg) PO BEDTIME Trulicity (dulaglutide) 4.5 mg (0.5 mL) subcut QWEEK NS Tobacco use date assessed: 04/29/24 Last assessed Fall Risk: 04/29/24 Dental Screening Dental Screen Date: 04/29/24 Did you have a dental visit in the last 12 months?: Yes Did you have a dental problem in the last 6 months where you did not have access to dental care?: No Was dental information given to patient?: Patient has dentist HPI Med review HPI Details Patient presents for the follow-up of insulin-dependent diabetes, paroxysmal AFib ,hypertension, hyperlipidemia, chronic kidney disease stage 3, BPH. He came from [place] 2 weeks ago and is going back next month. He reports high blood glucose readings in the late afternoon into a night to over 200s. Patient reports eating main meal of the day in the late afternoon. He denies chest pain shortness or breath or palpitations but has not been physically active [facility] Medical History Chronic atrial fibrillation Persistent atrial fibrillation Paroxysmal atrial fibrillation Cataract Lower back pain Left shoulder pain HTN (hypertension) Diastolic dysfunction Cough Chronic iron deficiency anemia BPH (benign prostatic hyperplasia) Hyperlipidemia COPD (chronic obstructive pulmonary disease) Diabetes Surgical History History of esophagogastroduodenoscopy (EGD) H/O colonoscopy S/P cholecystectomy Family History Father No problems noted. Mother No problems noted. Social History Housing: House Alcohol intake: never Patient Tobacco Use Status: Former Tobacco user (30 years ago) e-Cigarette/Vaping Use: Never Used service: No Current occupational status: retired Cognitive needs: No Hearing needs: No Vision needs: No Questionnaire PHQ-9 Over the last 2 weeks, how often have you been bothered by any of the following problems? 1. Little interest or pleasure in doing things: not at all 2. Feeling down, depressed, or hopeless: not at all 3. Trouble falling or staying asleep, or sleeping too much: not at all 4. Feeling tired or having little energy: not at all 5. Poor appetite or overeating: not at all 6. Feeling bad about yourself - or that you are a failure or have let yourself or your family down: not at all 7. Trouble concentrating on things, such as reading the newspaper or watching television: not at all 8. Moving or speaking so slowly that other people could have noticed. Or the opposite - being so fidgety or restless that you have been moving around a lot more than usual: not at all 9. Thoughts that you would be better off or of hurting yourself in some way: not at all Total score: 0 Depression Screening Interpretation: Negative Depression Screening Done: Yes 55638 - PHQ-9 Billing: Yes Source: Developed by Drs. Chester Edgar, Denisse Walden, Gautam Grayson and colleagues, with an educational raf from [email or web address]. Thrive Questionnaire Date Thrive assessed: 04/29/24 I am a: Patient What is your living situation today?: I have a steady place to live Within the past 12 months, did the food you bought not last and you didn't have the money to get more?: Never true Within the past 12 months, did you worry whether your food would run out before you got money to buy more?: Never true Do you have trouble paying for medicines?: No Do you have trouble getting transportation to medical appointments?: No Do you have trouble paying your heating and electricity bill?: No Do you have trouble taking care of your child, family member or friend?: No Do you have trouble with day-to-day activities such as bathing, preparing meals, shopping, managing finances, etc.?: No Are you currently unemployed and looking for a job?: No Are you interested in more education?: No Please select the resources that you would like help with: None Currently or been in a relationship where the following occur: No concerns reported THRIVE Score: 0 AUDIT C Alcohol Use Questionnaire (AUDIT-C) 1. How often do you have a drink containing alcohol?: Never 3. How often do you have six or more drinks on one occasion?: Never Total Score: 0 KELSEY-7 AMB Questionnaire KELSEY-7 Date KELSEY - 7 assessed: 04/29/24 Feeling nervous, anxious, or on edge: 0 = Not at all Not being able to stop or control worryin = Not at all Worrying too much about different things: 0 = Not at all Trouble relaxin = Not at all Being so restless that it is hard to sit still: 0 = Not at all Becoming easily annoyed or irritable: 0 = Not at all Feeling afraid as if something awful might happen: 0 = Not at all Total KELSEY-7 score (0-4 normal; 5-9 mild; 10-14 moderate; 15-21 severe): 0 Source: Developed by Drs. Chester Edgar, Denisse Walden, Gautam Grayson and colleagues, with an educational raf from [email or web address]. KELSEY-7 Assessment Billing KELSEY-7 Assessment Tool: KELSEY-7 Assessment 59982 Review of Systems Const All systems reviewed & are unremarkable except as noted in HPI and below Eyes Reports no additional complaints ENT Reports no additional complaints Card Reports no additional complaints Resp Reports no additional complaints GI Reports no additional complaints Reports no additional complaints Physical exam (Primary Care) Vital Signs: Last Vital Signs Temp 98.4 F 04/29/24 11:09 Pulse 72 04/29/24 11:09 Resp 20 04/29/24 11:09 BP 110/76 04/29/24 11:09 Pulse Ox 98 04/29/24 11:09 Oxygen Delivery Method Room Air 04/29/24 11:09 BMI result Body Mass Index 33.2 Tobacco/Smoking Status: Tobacco use Status Tobacco use date assessed 04/29/24 04/29/24 11:48 Patient Tobacco Use Status Former Tobacco user (30 04/29/24 11:48 years ago) e-Cigarette/Vaping Use Never Used 04/29/24 11:10 PHQ-9: PHQ-9 Score PHQ-9: Total score 0 04/29/24 11:48 Depression Screening Interpretation: Negative Thrive Assessment: Date of Thrive Assessment Date Thrive assessed 04/29/24 04/29/24 11:48 Currently or been in a relationship where the following occur: No concerns reported Const General: no acute distress HENMT Head: Yes normal to inspection Face and sinus: Yes normal facial exam Throat: Yes posterior oropharynx normal Neck Neck: Yes no lymphadenopathy and Yes supple Resp Effort & Inspection: normal respiratory effort Auscultation: crackles bilateral and diminished lung sounds Cardio Rhythm: abnormal rhythm irregularly irregular Heart sounds: S1 normal heart sound present and S2 normal heart sound present GI Inspection: Yes normal to inspection Palpation (GI): Soft to palpation Percussion: Yes normal to percussion Auscultation: normal bowel sounds Extrem General: Yes no clubbing, cyanosis or edema Coding Level of Care Code Est Pt Level 5 (70881) Complex EM visit Add On G2211 Diagnoses Diabetes E11.9 COPD (chronic obstructive pulmonary disease) J44.9 HTN (hypertension) I10 Cardiomyopathy I42.9 Chronic atrial fibrillation I48.20 Chronic kidney disease, stage 3 N18.30 Additional Codes KELSEY-7 Assessment Billing - KELSEY-7 Assessment Tool: KELSEY-7 Assessment 22934 ([id number]) PHQ-9 - 82425 - PHQ-9 Billing: Yes ([id number]) Assessment & Plan Assessment & Plan (1) Diabetes: Comment: IDDM A1C goal less than 7.5 Code(s): E11.9 - Type 2 diabetes mellitus without complications Category: Medical Plan: ADA diet increase physical activity discussed with the patient he was advised to increase Lantus to 40 units and Humalog before dinner to 15 units if blood glucose is more than 150. Trulicity will be increased to 4.5 mg weekly. Patient will continue the rest of the medications he will return for fasting labs including A1c. (2) COPD (chronic obstructive pulmonary disease): Code(s): J44.9 - Chronic obstructive pulmonary disease, unspecified Category: Medical Plan: Continue Trelegy (3) HTN (hypertension): Code(s): I10 - Essential (primary) hypertension Category: Medical Plan: Continue current medications (4) Cardiomyopathy: Comment: Echo 04/26 EF 45%, lower from 60% 2021, Echo 04/27 EF 50%, no segmental wall motion abnormality, mild global hypokinesis, normal valves no pulmonary hypertension Code(s): I42.9 - Cardiomyopathy, unspecified Category: Medical Plan: Continue current medications (5) Chronic atrial fibrillation: Comment: Rate control on diltiazem Code(s): I48.20 - Chronic atrial fibrillation, unspecified Category: Medical Plan: Change Pradaxa to Eliquis because of patient's age and high risk of bleeding on Pradaxa (6) Chronic kidney disease, stage 3: Code(s): N18.30 - Chronic kidney disease, stage 3 unspecified Category: Medical Plan: Avoid nephrotoxins monitor renal function return for fasting blood work continue Jardiance Orders: Orders Comprehensive [place]. Panel Fast Today E11.9 - Type 2 diabetes mellitus without complications, I10 - Essential (primary) hypertension, I42.9 - Cardiomyopathy, unspecified, I48.20 - Chronic atrial fibrillation, unspecified, J44.9 - Chronic obstructive pulmonary disease, unspecified, N18.30 - Chronic kidney disease, stage 3 unspecified Complete Blood Count Auto Diff Today E11.9 - Type 2 diabetes mellitus without complications, I10 - Essential (primary) hypertension, I42.9 - Cardiomyopathy, unspecified, I48.20 - Chronic atrial fibrillation, unspecified, J44.9 - Chronic obstructive pulmonary disease, unspecified, N18.30 - Chronic kidney disease, stage 3 unspecified Microalbumin, Random (w Creat) Today E11.9 - Type 2 diabetes mellitus without complications, I10 - Essential (primary) hypertension, I42.9 - Cardiomyopathy, unspecified, I48.20 - Chronic atrial fibrillation, unspecified, J44.9 - Chronic obstructive pulmonary disease, unspecified, N18.30 - Chronic kidney disease, stage 3 unspecified TSH reflex Free T4 Today E03.9 - Hypothyroidism, unspecified Hemoglobin A1c Today J44.9 - Chronic obstructive pulmonary disease, unspecified, N18.30 - Chronic kidney disease, stage 3 unspecified Lipid Panel Today E11.9 - Type 2 diabetes mellitus without complications, I10 - Essential (primary) hypertension, I42.9 - Cardiomyopathy, unspecified, I48.20 - Chronic atrial fibrillation, unspecified, J44.9 - Chronic obstructive pulmonary disease, unspecified, N18.30 - Chronic kidney disease, stage 3 unspecified Medications: New apixaban (Eliquis) 5 mg PO BID 180 tabs 3RF Trulicity (dulaglutide) 4.5 mg (0.5 mL) subcut QWEEK 6 mL 3RF NS Changed From Lantus Solostar U-100 Insulin (insulin glargine) 30 units (0.3 mL) subcut DAILY 45 mL 3RF NS To Lantus Solostar U-100 Insulin (insulin glargine) 40 units (0.4 mL) subcut DAILY 45 mL 3RF NS Refilled empagliflozin (Jardiance) 10 mg PO DAILY 90 tabs 3RF diltiazem HCl CD 180 mg PO DAILY 90 caps 3RF jejgmedjkep-rtjwhofhe-ackveuxb 100-62.5-25 mcg (Trelegy Ellipta) 1 inh inhalation DAILY 56 ea 5RF Humalog KwikPen Insulin (insulin lispro) 10 units (0.1 mL) subcut TID 45 mL 3RF NS E11.9 - Type 2 diabetes mellitus without complications levothyroxine 50 mcg PO DAILY 90 tabs 1RF metformin 500 mg (1/2 x 1,000 mg) PO BID 180 tabs 3RF metoprolol succinate ER 100 mg PO BID 180 tabs 3RF rosuvastatin (Crestor) 20 mg PO DAILY 90 tabs 3RF tamsulosin 0.8 mg (2 x 0.4 mg) PO BEDTIME 180 caps 3RF furosemide 20 mg PO DAILY 90 tabs 3RF Lantus Solostar U-100 Insulin (insulin glargine) 30 units (0.3 mL) subcut DAILY 45 mL 3RF NS Discontinued Trulicity (dulaglutide) Discontinued Reason: Doctor's Order 3 mg (0.5 mL) subcut QWEEK 6 mL 2RF NS dabigatran etexilate (Pradaxa) Discontinued Reason: Duplicate 150 mg PO BID 180 caps 3RF valsartan Discontinued Reason: Doctor's Order 40 mg PO DAILY 30 tabs 11RF I48.19 - Other persistent atrial fibrillation
--- OUTSIDE RECORDS SUMMARY | 2024-04-29 13:54 | XMS_ITS | Encounter Summary ---
Author Organization [facility] Address [address] [place] [address] Care Team Providers Care Loader Machine Name Role Phone Unavailable Primary Care Provider Unavailabl e Encounter Details Date Type Department Care Team (Late st Contact Info) Description 04/28/[address] [facility] - Main Lab [address] [facility] [place] [address] Santo Hartmann MD [address] [facility] [address] [place] [phone] Benign prostatic hyperplasia with lower urinary tract symptoms Social History Tobacco Use Types Packs/Day Years Used Date Smoking Tobacco: Never Assessed Sex and Gender Information Value Date Recorded Sex Assigned at Not on file Legal Sex Male 9:26 AM EST Gender Identity Not on file Sexual Orientation Not on file documented as of this encounter Plan of Treatment Not on file documented as of this encounter Procedures Procedure Name Priority Date/Time Associated Diagnosis Comments PROSTATE SPECIFIC ANTIGEN DIAGNOSTIC Routine 04/28/2024 9:23 AM EST Benign prostatic hyperplasia with lower urinary tract symptoms documented in this encounter Results * Prostate specific antigen diagnostic (04/28/2024 9:23 AM EST) PSA 0.84 0.00 - 4.00 ng/mL LAB CHEMISTRY METHOD 04/28/2024 3:56 PM EST [facility] Blood Venous blood specimen / Unknown 04/28/2024 9:23 AM EST 04/28/2024 12:30 PM EST Narrative [facility] - 04/28/2024 3:56 PM EST The Siemens Advia Izoobleaur Chemiluminescent Immunoassay is used. Results obtained with different assay methods or kits cannot be used interchangeably. Results cannot be interpreted as absolute evidence of the presence or absence of malignant disease. us Santo Hartmann MD LAB BLOOD ORDERABLES Final Resul t [facility] [address] [place] [address], documented in this encounter Visit Diagnoses Diagnosis Benign prostatic hyperplasia with lower urinary tract symptoms documented in this encounter
--- OUTSIDE RECORDS SUMMARY | 2024-04-29 13:54 | XMS_ITS | Clinical Summary ---
Author Organization [address] [facility] Address [address] [place] [address] Phone Care Team Providers Care Environmental Compliance Specialist Name Role Phone Unavailable Primary Care Provider Unavailabl e Encounters Date Type Department Care Team Description 04/28/2024 Lab Requisition [facility] - Main Lab [address] [place] [address] Santo Hartmann MD Benign prostatic hyperplasia with lower urinary tract symptoms from Last 3 Months Social History Tobacco Use Types Packs/Day Years Used Date Smoking Tobacco: Never Assessed Sex and Gender Information Value Date Recorded Sex Assigned at Not on file Legal Sex Male 9:26 AM EST Gender Identity Not on file Sexual Orientation Not on file Plan of Treatment Health Maintenance Due Date Last Done Comments DTaP,Tdap,and Td Vaccines (1 - Tdap) 1961 Pneumococcal Vaccine: 50+ Ye ars (1 of 1 - PCV) 1992 Zoster Vaccines (1 of 2) 1992 RSV Immunization Patients 60 + Years Old (1 - 1-dose 75+ series) 2017 COVID-19 Vaccine (1 - 2023-2 5 season) 2023 Influenza Vaccine (#1) 2023 Cholesterol Screening (Lipid Panel) 04/29/2024 Depression Screening 04/29/2024 Falls Risk Assessment 04/29/2024 Medicare Annual Wellness Visit 04/29/2024 Social Influencers of Health Screening 04/29/2024 HIB Vaccines Aged Out No longer eligi ble based on patient's age to complete this topic HPV Vaccines Aged Out No longer eligi ble based on patient's age to complete this topic Hepatitis A Vaccines Aged Out No long er eligible based on patient's age to complete this topic Hepatitis B Vaccines Aged Out No long er eligible based on patient's age to complete this topic IPV Vaccines Aged Out No longer eligi ble based on patient's age to complete this topic MMR Vaccines Aged Out No longer eligi ble based on patient's age to complete this topic Meningococcal ACWY Vaccine Aged Out N o longer eligible based on patient's age to complete this topic Meningococcal B Vacine Aged Out No lo nger eligible based on patient's age to complete this topic RSV Immunization Patients Un yuliya 20 months Aged Out No longer eligible b ased on patient's age to complete this topic Varicella Vaccines Aged Out No longer eligible based on patient's age to complete this topic Procedures Procedure Name Priority Date/Time Associated Diagnosis Comments PROSTATE SPECIFIC ANTIGEN DIAGNOSTIC Routine 04/28/2024 9:23 AM EST Benign prostatic hyperplasia with lower urinary tract symptoms from Last 3 Months Results * Prostate specific antigen diagnostic (04/28/2024 9:23 AM EST) PSA 0.84 0.00 - 4.00 ng/mL LAB CHEMISTRY METHOD 04/28/2024 3:56 PM EST [facility] Blood Venous blood specimen / Unknown 04/28/2024 9:23 AM EST 04/28/2024 12:30 PM EST Narrative [facility] - 04/28/2024 3:56 PM EST The Siemens Advia Centaur Chemiluminescent Immunoassay is used. Results obtained with different assay methods or kits cannot be used interchangeably. Results cannot be interpreted as absolute evidence of the presence or absence of malignant disease. Santo Hartmann MD LAB BLOOD ORDERABLES Final Resul t [facility] [address] [place] [address], from Last 3 Months Insurance MEDICARE
--- OUTSIDE RECORDS SUMMARY | 2024-04-29 13:54 | XMS_ITS | Patient Health Record ---
Author Organization [facility] Address [address] [place] [phone] Care Team Providers Care Director Building Name Role Phone Jayleen Molina MD Primary [...] W/U Status Risk SNOMED Code Notes Problem Colon cancer screening (Z12.11) Active confirmed 382952796 Problem prison (current) use of insulin (Z79.4) Active confirmed 363700143 Problem Gastroesophageal reflux disease without esophagitis (K21.9) Active confirmed 108630877 Problem Iron deficiency anemia, unspecified iron deficiency anemia type (D50.9) Active confirmed 94352925 PLAN OF TREATMENT Future Test Test Name Order Date UPPER GI ENDOSCOPY 05/01/2017 COLONOSCOPY 05/01/2017 COLONOSCOPY 06/13/2020 Insurance Providers Payer Name Payer Address Payer Phone Subscriber Number Group Number Insured Name Patient Relationship to Insured Coverage Start Date Coverage End Date MEDICARE OF [place] [address] [place] [id number] LINDA QUESADA Self - patient is the insured MEDICAL (GENERAL) HISTORY Medical History History ICD Code hypertension asthma - mild intermittent diabetes II hyperlipidemia neuropathy hypothyroidism Surgical History Surgery Date(Month/Year) finger surgery cholecystectomy
== END 2024-04-29 12:18 | disposition home or self-care (01) ==
PROVIDERS: PCP Internal Medicine; Visit Provider Internal Medicine
DX: I12.9 Hypertensive chronic kidney disease with stage 1 through stage 4 chronic kidney disease, or unspecified chronic kidney disease (principal); E11.22 Type 2 diabetes mellitus with diabetic chronic kidney disease; N18.30 Chronic kidney disease, stage 3 unspecified; J44.9 Chronic obstructive pulmonary disease, unspecified; I42.9 Cardiomyopathy, unspecified; I48.20 Chronic atrial fibrillation, unspecified

== ENCOUNTER → 2024-04-29 11:05 | Outpatient (BNVA) | payer MEDICARE, SELFPAY | PROVIDERS: PCP Internal Medicine; Visit Provider Internal Medicine | DX: J44.9 Chronic obstructive pulmonary disease, unspecified (principal); I42.9 Cardiomyopathy, unspecified; I48.20 Chronic atrial fibrillation, unspecified; I12.9 Hypertensive chronic kidney disease with stage 1 through stage 4 chronic kidney disease, or unspecified chronic kidney disease; E11.22 Type 2 diabetes mellitus with diabetic chronic kidney disease; N18.30 Chronic kidney disease, stage 3 unspecified | CPT/HCPCS: 96127; 99212 ==

== ENCOUNTER 2024-04-30 08:56 | Outpatient (REF) | payer MEDICARE, SELFPAY ==
--- OUTSIDE RECORDS SUMMARY | 2024-04-30 09:32 | XMS_ITS | Clinical Summary ---
Author Organization [address] [facility] Address [address] [place] [address] Phone Care Team Providers Care Multimedia Artist Name Role Phone Unavailable Primary Care Provider Unavailabl e Encounters Date Type Department Care Team Description 04/28/2024 Lab Requisition [facility] - Main Lab [address] [place] [address] Santo Hartmann MD Benign prostatic [...] LAB CHEMISTRY METHOD 04/28/2024 3:56 PM EST [facility] Blood Venous blood specimen / Unknown 04/28/2024 9:23 AM EST 04/28/2024 12:30 PM EST Narrative [facility] - 04/28/2024 3:56 PM EST The Siemens Advia Centaur Chemiluminescent Immunoassay is used. Results obtained with different assay methods or kits cannot be used interchangeably. Results cannot be interpreted as absolute evidence of the presence or absence of malignant disease. Santo Hartmann MD LAB BLOOD ORDERABLES Final Resul t [facility] [address] [place] [address], from Last 3 Months Insurance MEDICARE
--- OUTSIDE RECORDS SUMMARY | 2024-04-30 09:32 | XMS_ITS | Encounter Summary ---
Author Organization [facility] Address [address] [place] [address] Care Team Providers Care Hat Former Name Role Phone Unavailable Primary Care Provider Unavailabl e Encounter Details Date Type Department Care Team (Late st Contact Info) Description 04/28/2024 Lab Requisition [facility] - Main Lab [address] [facility] [place] [address] Santo Hartmann MD [address] [facility] [address] [place] [phone] Benign prostatic hyperplasia with lower urinary tract [...] LAB CHEMISTRY METHOD 04/28/2024 3:56 PM EST [facility] Blood Venous blood specimen / Unknown 04/28/2024 9:23 AM EST 04/28/2024 12:30 PM EST Narrative [facility] - 04/28/2024 3:56 PM EST The Siemens Advia YuMingleaur Chemiluminescent Immunoassay is used. Results obtained with different assay methods or kits cannot be used interchangeably. Results cannot be interpreted as absolute evidence of the presence or absence of malignant disease. us Santo Hartmann MD LAB BLOOD ORDERABLES Final Resul t [facility] ([facility]) [facility] [address] [place] [address], documented in this encounter Visit Diagnoses Diagnosis Benign prostatic hyperplasia with lower urinary tract symptoms documented in this encounter
[2024-04-30 10:05] LABS: MANUAL DIFF FLAG NO
[2024-04-30 10:19] LABS: Basophils Percent Auto 0.4 % (0-2); Eosinophils Absolute Auto 0.1 X10*3/uL (0.0-0.4); Eosinophils Percent Auto 1.5 % (0-4); Hematocrit 37.1 % (42.0-52.0); Hemoglobin 11.7 g/dl (14.0-18.0); Imm Gran Abs Auto 0.01 X10*3/uL (0.00-0.03); Imm Gran Pct Auto 0.2 % (0.0-0.4); Lymphocytes Absolute Auto 1.5 X10*3/uL (1.2-4.9); Lymphocytes Percent Auto 31.4 % (20-40); Mean Corpuscular HGB Conc 31.5 g/dl (31.0-36.0); Mean Corpuscular Hemoglobin 28.5 pg (27.0-33.0); Mean Corpuscular Volume 90.3 fL (80.0-98.0); Mean Platelet Volume 10.9 fL (9.4-12.4); Monocytes Absolute Auto 0.4 X10*3/uL (0.1-1.2); Monocytes Percent Auto 8.7 % (2-11); Neutrophils Absolute Auto 2.7 x10*3/uL (2.0-8.3); Neutrophils Percent Auto 57.8 % (45-73); Platelet Count 204 X10*3/uL (160-400); Red Blood Count 4.11 X10*6/uL (4.60-5.80); Red Cell Distribution Width 15.4 % (11.0-16.0); White Blood Count 4.7 X10*3/uL (4.8-10.8)
[2024-04-30 10:24] LABS: Estimated Average Glucose 189 mg/dL; Hemoglobin A1c % 8.2 % (<6.0); Total Hemoglobin (HGBA1C) 3123.3433 umol/L
[2024-04-30 10:54] LABS: Alanine Aminotransferase 21 U/L (0-40); Alkaline Phosphatase 69 U/L (39-117); Anion Gap 12 (12-20); Aspartate Amino Transferase 26 U/L (5-37); Bilirubin Total 0.5 mg/dL (0.0-1.0); Blood Urea Nitrogen 31 mg/dL (9-16); Calcium 8.9 mg/dL (8.4-10.2); Carbon Dioxide 25 mmol/L (22-29); Chloride 108 mmol/L (96-108); Cholesterol 120 mg/dL (<200); Estimated Glomerular Filt Rate 50; Glucose Fasting 146 mg/dL (60-99); Glucose Random 145 mg/dL (60-115); HDL Cholesterol 39 mg/dL (>40); LDL Cholesterol Calculated 54 mg/dL (<100); Sodium 141 mmol/L (135-145); Total Protein 7.6 g/dL (6.5-8.0); Triglycerides 138 mg/dL (<150)
[2024-04-30 17:12] LABS: Creatinine Urine 187.63 mg/dL; Microalbum/Creatinine Ratio Ur 11.1 ug/mg cr (<30)
== END 2024-04-30 08:57 | disposition home or self-care (01) ==
LOC: HO.HMGCLDS 08:56
PROVIDERS: PCP Internal Medicine; Visit Provider Internal Medicine
DX: I10 Essential (primary) hypertension (principal); E11.9 Type 2 diabetes mellitus without complications; J44.9 Chronic obstructive pulmonary disease, unspecified; N18.30 Chronic kidney disease, stage 3 unspecified; I48.20 Chronic atrial fibrillation, unspecified; I42.9 Cardiomyopathy, unspecified; E03.9 Hypothyroidism, unspecified
CPT/HCPCS: 36415; 80048; 80053; 80061; 82043; 82570; 83036; 84443; 85025

== ENCOUNTER 2024-05-12 09:59 | Outpatient (AMB) | payer MEDICARE, SELFPAY ==
[2024-05-12 10:23] VITALS: BP 122/62; PULSE 84; RESP 18; TEMP 36.8; O2SAT 96; BMI 33.0
--- NOTE | 2024-05-12 10:23 | A.OFFPC_ITS ---
Vital Signs 05/12/24 10:23 Height 5 ft 7 in Weight 211 lb BMI 33.0 BP 122/62 Blood Pressure Location Lt brachial Position Sitting Respiration 18 Pulse 84 Pulse Source Pulse Oximeter Temp 98.3 F Temp Source Oral Pulse Oximetry (%) 96 Oxygen Delivery Method Room Air Intake Visit Reasons: Followup blood work Intake Note: Pt is here today for a follow up visit on blood work results. Allergies No Known Allergies [No Known Allergies*] Allergy (Verified 04/29/24 11:55) Medication List - Last Reconciled 05/12/24 by Jayleen Molina MD albuterol sulfate 90 mcg/actuation 2 puffs inhalation Q6H PRN apixaban (Eliquis) 5 mg PO BID blood sugar diagnostic 1 strip miscellaneous BID 90 days blood sugar diagnostic (Capture Media Ultra Test strips) Test blood sugar 3 times per day coenzyme Q10 60 mg PO DAILY diltiazem HCl CD 180 mg PO DAILY empagliflozin (Jardiance) 10 mg PO DAILY flash glucose scanning reader ([employer] Jesu 2 [employer]) As directed flash glucose sensor (NutriVenturesStyle Jesu 2 Sensor kit) As directed vsjixjiarcx-zuitntnkn-dldupfrh 100-62.5-25 mcg (Trelegy Ellipta) 1 inh inhalation DAILY furosemide 20 mg PO DAILY Humalog KwikPen Insulin (insulin lispro) 10 units (0.1 mL) subcut TID NS hydrocortisone 1% (Proctocort) 1 appl topical BID Lantus Solostar U-100 Insulin (insulin glargine) 40 units (0.4 mL) subcut DAILY NS levothyroxine 50 mcg PO DAILY metformin 500 mg (1/2 x 1,000 mg) PO BID metoprolol succinate ER 100 mg PO BID multivit-mins no.11-folic acid PO pen needle, diabetic (BD Ultra-Fine Short Pen Needle) 1 ea subcut TID 30 days rosuvastatin (Crestor) 20 mg PO DAILY tamsulosin 0.8 mg (2 x 0.4 mg) PO BEDTIME Trulicity (dulaglutide) 4.5 mg (0.5 mL) subcut QWEEK NS Tobacco use date assessed: 05/12/24 Dental Screening Dental Screen Date: 04/29/24 HPI Followup blood work HPI Details Pt presents for follow-up of insulin-dependent diabetes COPD paroxysmal AFib hypertension hypothyroidism PFSH Medical History Chronic atrial fibrillation Persistent atrial fibrillation Paroxysmal atrial fibrillation Cataract Lower back pain Left shoulder pain HTN (hypertension) Diastolic dysfunction Cough Chronic iron deficiency anemia BPH (benign prostatic hyperplasia) Hyperlipidemia COPD (chronic obstructive pulmonary disease) Diabetes Surgical History History of esophagogastroduodenoscopy (EGD) H/O colonoscopy S/P cholecystectomy Family History Father No problems noted. Mother No problems noted. Social History Housing: House Alcohol intake: never Patient Tobacco Use Status: Former Tobacco user (30 years ago) e-Cigarette/Vaping Use: Never Used service: No Current occupational status: retired Cognitive needs: No Hearing needs: No Vision needs: No Questionnaire Thrive Questionnaire Date Thrive assessed: 04/28/24 I am a: Patient What is your living situation today?: I have a steady place to live Within the past 12 months, did the food you bought not last and you didn't have the money to get more?: Never true Within the past 12 months, did you worry whether your food would run out before you got money to buy more?: Never true Do you have trouble paying for medicines?: No Do you have trouble getting transportation to medical appointments?: No Do you have trouble paying your heating and electricity bill?: No Do you have trouble taking care of your child, family member or friend?: No Do you have trouble with day-to-day activities such as bathing, preparing meals, shopping, managing finances, etc.?: No Are you currently unemployed and looking for a job?: No Are you interested in more education?: No Please select the resources that you would like help with: None Currently or been in a relationship where the following occur: No concerns reported THRIVE Score: 0 KELSEY-7 AMB Questionnaire KELSEY-7 Date KELSEY - 7 assessed: 04/29/24 Source: Developed by Drs. Chester Edgar, Denisse Walden, Gautam Grayson and colleagues, with an educational raf from [employer]. Review of Systems Const All systems reviewed & are unremarkable except as noted in HPI and below Eyes Reports no additional complaints ENT Reports no additional complaints Card Reports no additional complaints Resp Reports no additional complaints GI Reports no additional complaints Reports no additional complaints Physical exam (Primary Care) Vital Signs: Last Vital Signs Temp 98.3 F 05/12/24 10:23 Pulse 84 05/12/24 10:23 Resp 18 05/12/24 10:23 BP 122/62 05/12/24 10:23 Pulse Ox 96 05/12/24 10:23 Oxygen Delivery Method Room Air 05/12/24 10:23 BMI result Body Mass Index 33.0 Tobacco/Smoking Status: Tobacco use Status Tobacco use date assessed 05/12/24 05/12/24 10:54 Patient Tobacco Use Status Former Tobacco user (05/12/24 10:27 years ago) e-Cigarette/Vaping Use Never Used 05/12/24 10:27 Thrive Assessment: Date of Thrive Assessment Date Thrive assessed 04/28/24 05/12/24 10:27 Currently or been in a relationship where the following occur: No concerns reported Const General: no acute distress HENMT Head: Yes normal to inspection Mouth: Normal oral and palatal mucosa present Neck Neck: Yes supple Resp Effort & Inspection: normal respiratory effort Auscultation: clear to auscultation bilaterally Cardio Rhythm: regular rhythm Heart sounds: S1 normal heart sound present and S2 normal heart sound present GI Inspection: Yes normal to inspection Palpation (GI): Soft to palpation Percussion: Yes normal to percussion Auscultation: normal bowel sounds Coding Level of Care Code Est Pt Level 4 (33977) Diagnoses Chronic kidney disease, stage 3 N18.30 Chronic atrial fibrillation I48.20 Cardiomyopathy I42.9 Diabetes E11.9 COPD (chronic obstructive pulmonary disease) J44.9 Assessment & Plan Assessment & Plan (1) Chronic kidney disease, stage 3: Code(s): N18.30 - Chronic kidney disease, stage 3 unspecified Category: Medical Plan: Avoid nephrotoxins monitor kidney function (2) Chronic atrial fibrillation: Comment: Rate control on diltiazem Code(s): I48.20 - Chronic atrial fibrillation, unspecified Category: Medical Plan: Continue current medications and anticoagulation with Eliquis (3) Cardiomyopathy: Comment: Echo 04/26 EF 45%, lower from 60% 2021, Echo 04/27 EF 50%, no segmental wall motion abnormality, mild global hypokinesis, normal valves no pulmonary hypertension Code(s): I42.9 - Cardiomyopathy, unspecified Category: Medical Plan: Continue current medications (4) Diabetes: Comment: IDDM A1C goal less than 7.5 Code(s): E11.9 - Type 2 diabetes mellitus without complications Category: Medical Plan: A1c is 8.0, ADA diet increase physical activity medication compliance discussed with the patient he going to [place] for 6 months when we will follow-up after return (5) COPD (chronic obstructive pulmonary disease): Code(s): J44.9 - Chronic obstructive pulmonary disease, unspecified Category: Medical Plan: Continue Trelegy Medications: New hydrocortisone 1% (Proctocort) 1 appl topical BID 453.6 grams 0RF
--- OUTSIDE RECORDS SUMMARY | 2024-05-12 11:36 | XMS_ITS | Patient Health Record ---
Author Organization [facility] Address [address] [place] [address] Care Team Providers Care Director Of Healthcare Systems Name Role Phone Jayleen Molina MD Primary Care Provider Mckinley Galloway Jr Unavailable Reason For Referral No Information Medications Medication SIG (Take, Route, Frequency, Duration) Notes [...] as directed Subcutan eous as directed Active Immunizations Vaccine Route Administration Date Status Comme nts Flu vaccine no Preserv 3 and > Unknown 12/25/2016 Admin istered Influenza Unknown 03/09/2020 Administered Social History Tobacco Use: Social History Observation Description Date Details (start date - stop date) Former Smoker NA - NA Tobacco Use/Smoking Question Answer Notes Patient is [...] Never (0 point) Points 1 Interpretation Negative Problems Problem Type SNOMED Code ICD Code Onset Dates Problem Status W/U Status Risk Notes Problem 619678579 Colon cancer screening (Z12.11) Active confirmed Problem 580608695 group home (curre nt) use of insulin (Z79.4) Active confirmed Problem 126458910 Gastroesophageal reflux disease without esophagitis (K21.9) Active confirmed Problem 27839544 Iron deficiency anemia, unspecified iron deficiency anemia type (D50.9) Active confirmed Plan Of Treatment Future Test Test Name Order Date UPPER GI ENDOSCOPY 05/01/2017 COLONOSCOPY 05/01/2017 COLONOSCOPY 06/13/2020 Insurance Providers Payer Name Payer Address Payer Phone Subscriber Number Group Number Insured Name Patient Relationship to Insured Coverage Start Date Coverage End Date MEDICARE OF [place] [address] [place] [id number] LINDA QUESADA Self - patient is the insured Medical (General) History Medical History History ICD Code hypertension asthma - mild intermittent diabetes II hyperlipidemia neuropathy hypothyroidism Surgical History Surgery Date(Month/Year) finger surgery cholecystectomy
--- OUTSIDE RECORDS SUMMARY | 2024-05-12 11:36 | XMS_ITS | Encounter Summary ---
Author Organization [facility] Address [address] [place] [address] Care Team Providers Care Inspector Exhaust Emissions Name Role Phone Unavailable Primary Care Provider Unavailabl e Encounter Details Date Type Department Care Team (Late st Contact Info) Description 04/28/2024 Lab Requisition [facility] - Main Lab [address] [facility] [place] [address] Santo Hartmann MD [address] [facility] [address] [place] [id number] Benign prostatic hyperplasia with lower urinary tract [...] LAB CHEMISTRY METHOD 04/28/2024 3:56 PM EST [facility] Blood Venous blood specimen / Unknown 04/28/2024 9:23 AM EST 04/28/2024 12:30 PM EST Narrative [facility] - 04/28/2024 3:56 PM EST The Siemens Advia OrthoSensoraur Chemiluminescent Immunoassay is used. Results obtained with different assay methods or kits cannot be used interchangeably. Results cannot be interpreted as absolute evidence of the presence or absence of malignant disease. us Santo Hartmann MD LAB BLOOD ORDERABLES Final Resul t [facility] ([facility]) [facility] [address] [place] [address], documented in this encounter Visit Diagnoses Diagnosis Benign prostatic hyperplasia with lower urinary tract symptoms documented in this encounter
--- OUTSIDE RECORDS SUMMARY | 2024-05-12 11:36 | XMS_ITS | Clinical Summary ---
Author Organization [address] [facility] Address [address] [place] [address] Phone Care Team Providers Care Tubing Mill Operator Name Role Phone Unavailable Primary Care Provider Unavailabl e Encounters Date Type Department Care Team Description 04/28/2024 Lab Requisition [facility] - Main Lab [address] [place] [address] Santo Hartmann MD Benign prostatic [...] complete this topic RSV Immunization Patients Un yulyia 20 months Aged Out No longer eligible [...] LAB CHEMISTRY METHOD 04/28/2024 3:56 PM EST [facility] Blood Venous blood specimen / Unknown 04/28/2024 9:23 AM EST 04/28/2024 12:30 PM EST Narrative [facility] - 04/28/2024 3:56 PM EST The Siemens Advia Centaur Chemiluminescent Immunoassay is used. Results obtained with different assay methods or kits cannot be used interchangeably. Results cannot be interpreted as absolute evidence of the presence or absence of malignant disease. Santo Hartmann MD LAB BLOOD ORDERABLES Final Resul t [facility] [address] [place] [address], from Last 3 Months Insurance MEDICARE
== END 2024-05-12 13:06 | disposition home or self-care (01) ==
LOC: HO.HMCC 10:00
PROVIDERS: PCP Internal Medicine; Visit Provider Internal Medicine
DX: E11.22 Type 2 diabetes mellitus with diabetic chronic kidney disease (principal); N18.30 Chronic kidney disease, stage 3 unspecified; I48.20 Chronic atrial fibrillation, unspecified; I42.9 Cardiomyopathy, unspecified; J44.9 Chronic obstructive pulmonary disease, unspecified

== ENCOUNTER → 2024-05-12 09:59 | Outpatient (BNVA) | payer MEDICARE, SELFPAY | PROVIDERS: PCP Internal Medicine; Visit Provider Internal Medicine | DX: N18.30 Chronic kidney disease, stage 3 unspecified (principal); I48.20 Chronic atrial fibrillation, unspecified; I42.9 Cardiomyopathy, unspecified; E11.9 Type 2 diabetes mellitus without complications; J44.9 Chronic obstructive pulmonary disease, unspecified | CPT/HCPCS: 99212 ==